=== PATIENT | male | born 1955 | race Caucasian/White ===

== ENCOUNTER 2017-05-15 15:38 | Emergency (ER) | payer MEDICAID ==
[~2017-05-15] VITALS: Ht 167.6 cm; Wt 83.9 kg
[2017-05-15 16:12] VITALS: BP 117/64
--- NOTE | 2017-05-15 17:44 | NUR ---
Patient ambulated to bed 5. RN evaluating patient at bedside.
--- NOTE | 2017-05-15 17:55 | NUR ---
PT PRESENTS TO ER FOR EVALUATION OF FOREIGN BODY IN RIGHT EYE, SENT FROM PCP. 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 HE ALSO STATES HE F/U W/PCP TODAY, WHO THEN REFERRED HIM TO ER. PT STATES HE HAS SOME TYPE OF LIVER DISORDER AND TAKES MEDICATION, BUT UNABLE TO NAME DX OR MEDICATION HE TAKES. DENIES N/V/D; SKIN IS PINK/WARM/DRY; AAOX4 WITH EVEN AND STEADY GAIT; LUNGS CLEAR BL; HR EVEN AND REGULAR; PT DENIES ANY FEVER, CP, SOB, OR COUGH AT THIS TIME; PATIENT STATES PAIN OF 3/10 AT THIS TIME; PATIENT POSITIONED FOR COMFORT; HOB ELEVATED; BEDRAILS UP X2; BED DOWN. ER MD MADE AWARE OF PT STATUS.
[2017-05-15] MEDS ORDERED: FLUORESCEIN OPTH STRIP 1 MG OP ONE (18:15)
[2017-05-15] MEDS ORDERED: TETRACAINE 0.5% OPTH SOL 2 ML BTL OP ONE (18:15)
--- NOTE | 2017-05-15 18:36 | NUR ---
CARLOS MILLER AT BEDSIDE.
--- NOTE | 2017-05-15 19:19 | NUR ---
Patient discharged with v/s stable. Written and verbal after care instructions given and explained. Patient alert, oriented and verbalized understanding of instructions. Ambulatory with steady gait. All questions addressed prior to discharge. ID band removed. Patient advised to follow up with PMD. Rx of TYLENOL W/CODEINE,NAPROSYN AND TOBRAMYCIN given. Patient educated on indication of medication including possible reaction and side effects. Opportunity to ask questions provided and answered.
[2017-05-15 19:20] VITALS: BP 124/68
== END 2017-05-15 19:20 | disposition home or self-care (01) ==
LOC: MED 15:38
DX: T15.01XA Foreign body in cornea, right eye, initial encounter (principal); S00.251A Superficial foreign body of right eyelid and periocular area, initial encounter; Y93.89 Activity, other specified; Y92.89 Other specified places as the place of occurrence of the external cause; Y99.8 Other external cause status
CPT/HCPCS: 65222; 99284

== ENCOUNTER 2022-11-07 10:40 | Emergency (ER) | payer OTHER, MEDICAID ==
[~2022-11-07] VITALS: Ht 156.2 cm; Wt 96.6 kg
[2022-11-07 10:47] VITALS: BP 128/77
[2022-11-07] MEDS ORDERED: NACL 0.9% 1,000 ML IV ONE (11:15)
[2022-11-07] MEDS ORDERED: ONDANSETRON 4 MG/2 ML VIAL IVP ONE (11:15)
--- NOTE | 2022-11-07 11:26 | NUR ---
Patient ambulated with steady gait to bed 1.
--- NOTE | 2022-11-07 11:33 | NUR ---
ASSUMED PATIENT CARE AAOX4 AMBULATORY TO ER, C/O ABDOMINAL DISCOMFORT, NAUSEA AND VOMITING, PATIENT STATES HE ATE [employer]OD YESTERDAY AND SINCE THEN HE'S BEEN FEELING THAT WAY.
[2022-11-07 11:42] LABS: BASOPHILS % (AUTO) 0.4 % (0.0-2.0); EOSINOPHILS % (AUTO) 0.4 % (0.0-4.0); HEMATOCRIT 40.4 % (36-52); LYMPHOCYTES # (AUTO) 0.6 K/uL (2.0-11.5); LYMPHOCYTES % (AUTO) 8.1 % (20.5-51.1); MEAN CORPUSCULAR HEMOGLOBIN 28 pg (27-31); MEAN CORPUSCULAR HGB CONC 32 g/dL (33-37); MEAN CORPUSCULAR VOLUME 86.4 fL (80-94); MONOCYTES # (AUTO) 0.7 K/uL (0.8-1.0); MONOCYTES % (AUTO) 10.3 % (1.7-9.3); NEUTROPHILS # (AUTO) 5.5 K/uL (1.8-7.7); NEUTROPHILS % (AUTO) 80.8 % (42.2-75.2); PLATELET COUNT (AUTO) 86 K/uL (140-450); RED BLOOD CELL COUNT(AUTO) 4.67 MIL/uL (4.20-6.10); RED CELL DISTRIBUTION WIDTH 17.7 % (11.6-13.7); WHITE BLOOD COUNT (AUTO) 6.9 K/uL (4.8-10.8)
--- NOTE | 2022-11-07 11:50 | NUR ---
PATIENT INSTRUCTED FOR URINE COLLECTION.
[2022-11-07 12:04] LABS: ALBUMIN 3.6 g/dL (3.4-5.0); ANION GAP 12.2 (8-16); CARBON DIOXIDE 31.1 mmol/L (21-32); CREATININE 0.8 mg/dL (0.6-1.3); POTASSIUM 4.3 mmol/L (3.5-5.1); TOTAL BILIRUBIN 5.5 mg/dL (0.0-1.0)
--- NOTE | 2022-11-07 13:00 | NUR ---
ULTRASOUND AT BEDSIDE IN PROGRESS.
[2022-11-07] MEDS ORDERED: SIME125T38 PO (13:11)
[2022-11-07] MEDS ORDERED: FAMO-92 PO (13:11)
[2022-11-07] MEDS ORDERED: ONDA-188 PO (13:11)
--- NOTE | 2022-11-07 13:33 | NUR ---
ALL RESULT BACK EDP REASSESS PATIENT AND D/C HOME WITH INSTRUCTION.
[2022-11-07 13:34] VITALS: BP 136/67
--- NOTE | 2022-11-07 13:36 | NUR ---
Patient discharged with v/s stable. Written and verbal after care instructions given and explained. Patient alert, oriented and verbalized understanding of instructions. Ambulatory with steady gait. All questions addressed prior to discharge. ID band removed. Patient advised to follow up with PMD. Rx of PEPCID/ZOFRAN/SIMETHICONE given. Patient educated on indication of medication including possible reaction and side effects. Opportunity to ask questions provided and answered.
--- NOTE | 2022-11-10 10:06 | NUR ---
LATE ENTRY - CONFIRMED WITH NURSE NS INFUSION COMPLETED AT 1247 11/07/22.
== END 2022-11-07 13:36 | disposition home or self-care (01) ==
LOC: MED 10:40
DX: R10.84 Generalized abdominal pain (principal); E80.7 Disorder of bilirubin metabolism, unspecified; A05.9 Bacterial foodborne intoxication, unspecified
CPT/HCPCS: 76705; 80053; 83690; 85025; 96361; 96374; 99285; J2405; J7030; Q0092

== ENCOUNTER 2022-11-10 08:19 | Inpatient (IN) | payer OTHER, MEDICAID ==
[~2022-11-10] VITALS: Ht 167.6 cm; Wt 90.3 kg
[~2022-11-10 08:19] MED LIST: FAMO-92 PO; ONDA-188 PO; SIME125T38 PO
[2022-11-10 08:28] VITALS: BP 128/74
--- NOTE | 2022-11-10 08:33 | NUR ---
Patient ambulated with steady gait to bed 3.
[2022-11-10] MEDS ORDERED: NACL 0.9% 1,000 ML IV ONE (08:55)
[2022-11-10] MEDS ORDERED: ONDANSETRON 4 MG/2 ML VIAL IVP ONE (08:55)
[2022-11-10] MEDS ORDERED: PANTOPRAZOLE 40 MG INJ VIAL IVP ONE (08:55)
[2022-11-10 09:21] LABS: BASOPHILS % (AUTO) 0.1 % (0.0-2.0); HEMATOCRIT 42.6 % (36-52); LYMPHOCYTES # (AUTO) 0.4 K/uL (2.0-11.5); LYMPHOCYTES % (AUTO) 3.9 % (20.5-51.1); MEAN CORPUSCULAR HEMOGLOBIN 28 pg (27-31); MEAN CORPUSCULAR HGB CONC 33 g/dL (33-37); MEAN CORPUSCULAR VOLUME 85.5 fL (80-94); MONOCYTES # (AUTO) 0.9 K/uL (0.8-1.0); MONOCYTES % (AUTO) 9.4 % (1.7-9.3); NEUTROPHILS % (AUTO) 86.6 % (42.2-75.2); PLATELET COUNT (AUTO) 99 K/uL (140-450); RED BLOOD CELL COUNT(AUTO) 4.98 MIL/uL (4.20-6.10); RED CELL DISTRIBUTION WIDTH 17.3 % (11.6-13.7); WHITE BLOOD COUNT (AUTO) 9.2 K/uL (4.8-10.8)
[2022-11-10 09:40] LABS: ALBUMIN 3.7 g/dL (3.4-5.0); ANION GAP 16.3 (8-16); ASPARTATE AMINOTRANSFERASE 60 U/L (15-37); CARBON DIOXIDE 26.9 mmol/L (21-32); CHLORIDE 93 mmol/L (98-107); CREATININE 1.6 mg/dL (0.6-1.3); GFR ARICAN-AMERICAN 56 mL/min (>90); GLUCOSE 209 mg/dL (74-106); LIPASE 406 U/L (73-393); POTASSIUM 4.2 mmol/L (3.5-5.1); SODIUM SERUM 132 mmol/L (136-145); TOTAL BILIRUBIN 6.8 mg/dL (0.0-1.0); UREA NITROGEN, BLOOD 43 mg/dL (7-18)
--- NOTE | 2022-11-10 10:27 | NUR ---
SWABS COLLECTED AND BROUGHT TO LAB
--- NOTE | 2022-11-10 10:27 | NUR ---
Ultrasound at bedside.
[2022-11-10] MEDS ORDERED: NACL 0.9% 1,000 ML IV SCH ×2 (11:10→11:15)
[2022-11-10] MEDS ORDERED: MORPHINE SULFATE 2 MG/ML SYR IVP PRN (11:15)
[2022-11-10] MEDS ORDERED: ZOLPIDEM 10 MG TAB PO PRN (11:15)
[2022-11-10] MEDS ORDERED: POTASSIUM CHLORIDE 10 MEQ TABER PO PRN (11:15)
[2022-11-10] MEDS ORDERED: ACETAMINOPHEN 325 MG TAB PO PRN (11:15)
[2022-11-10] MEDS ORDERED: DOCUSATE SODIUM 100 MG GELCAP PO PRN (11:15)
[2022-11-10] MEDS ORDERED: ONDANSETRON 4 MG/2 ML VIAL IVP PRN (11:15)
[2022-11-10] MEDS ORDERED: MAG SULF 2000 MG/WATER PREMIX 50 ML IV PRN (11:15)
[2022-11-10] MEDS ORDERED: LORazepam 2 MG/ML VIAL IVP PRN (11:15)
--- NOTE | 2022-11-10 11:38 | NUR ---
Pt not able to give list of home medications. Stated he is taking an unknown medication for "my liver".
--- NOTE | 2022-11-10 12:28 | NUR ---
DR GAMINO AT BEDSIDE FOR EVAL
--- NOTE | 2022-11-10 12:41 | NUR ---
16G NG inserted in L nare. Xray ordered to verify placement.
[2022-11-10 13:06] LABS: APPEARANCE,URINE CLEAR (CLEAR); BILIRUBIN,URINE 2+ (NEGATIVE); BLOOD, URINE NEGATIVE (NEGATIVE); COLOR,URINE ORANGE (YELLOW); LEUKOCYTE ESTERASE ,URINE NEGATIVE (NEGATIVE); NITRITE, URINE NEGATIVE (NEGATIVE); UGLUCOSE NEGATIVE (NEGATIVE)
[2022-11-10] MEDS ORDERED: PIPERACILLIN/TAZOBACTAM 3.375 GM in DEXTROSE 5% 50 ML IV ONE (13:40)
--- NOTE | 2022-11-10 13:45 | NUR ---
PT ARRIVED IN THE UNIT WITH NG TUBE, NG TO TO INTERMITTED SUCTION CONNECTED. IV STARTED ORDERED AND ASSESSMENT DONE.[id number]
--- NOTE | 2022-11-10 14:01 | NUR ---
Bedside report given to receiving RN. UNA. Pt has all belongings.
[2022-11-10 16:00] VITALS: BP 135/74
--- NOTE | 2022-11-10 16:32 | NUR ---
PATIENT HAS BEEN SCREENED AND CATEGORIZED MODERATE NUTRITION RISK. PATIENT WILL BE SEEN WITHIN 3-5 DAYS OF ADMISSION. REVIEWED BY NAI ARTEAGA RD
--- NOTE | 2022-11-10 17:42 | NUR ---
CO VOMITING MED GIVEN ORDERED , PT HAVING X-RAY WITH CONTRAST EVERY 30 MINUTES CONTINUED.[id number]
--- NOTE | 2022-11-10 19:00 | NUR ---
PT PULLED OUT IV AND STARTED A NEW IV ON RIGHT HAND WITH 20G. THE X-RAY CONTINUED WITH CONTRAST.[id number]
[2022-11-10] MEDS ORDERED: NACL 0.9% 500 ML IV SCH (19:50)
[2022-11-10 20:00] VITALS: BP 132/72
[2022-11-10] MEDS: POTASSIUM CHL 20MEQ/D5-NS 1,000 ML IV SCH (20:09)
[2022-11-11 01:00] VITALS: BP 126/73
--- NOTE | 2022-11-11 02:15 | NUR ---
PATIENT STABLE VITALS SIGNS IN NORMAL LIMITS NOT COMPLAINING OF PAIN VITALS SIGNS IN NORMAL LIMITS STILL IN INTERMITTENS SUCTION
[2022-11-11] MEDS: POTASSIUM CHL 20MEQ/D5-NS 1,000 ML IV SCH ×3 (03:21→19:25)
[2022-11-11 04:02] VITALS: BP 129/64
[2022-11-11 06:03] LABS: BASOPHILS # (AUTO) 0.1 K/uL (0.00-0.22); BASOPHILS % (AUTO) 0.7 % (0.0-2.0); EOSINOPHILS # (AUTO) 0.1 K/uL (0-0.4); EOSINOPHILS % (AUTO) 1.3 % (0.0-4.0); HEMATOCRIT 39.2 % (36-52); HEMOGLOBIN 12.8 g/dL (12.0-18.0); LYMPHOCYTES # (AUTO) 0.6 K/uL (2.0-11.5); LYMPHOCYTES % (AUTO) 8.2 % (20.5-51.1); MEAN CORPUSCULAR HEMOGLOBIN 29 pg (27-31); MEAN CORPUSCULAR HGB CONC 33 g/dL (33-37); MEAN CORPUSCULAR VOLUME 87.2 fL (80-94); MONOCYTES # (AUTO) 1.1 K/uL (0.8-1.0); MONOCYTES % (AUTO) 15.5 % (1.7-9.3); NEUTROPHILS # (AUTO) 5.3 K/uL (1.8-7.7); NEUTROPHILS % (AUTO) 74.3 % (42.2-75.2); PLATELET COUNT (AUTO) 109 K/uL (140-450); RED CELL DISTRIBUTION WIDTH 17.5 % (11.6-13.7); WHITE BLOOD COUNT (AUTO) 7.1 K/uL (4.8-10.8)
[2022-11-11 06:14] LABS: CARBON DIOXIDE 27.4 mmol/L (21-32); CREATININE 1.2 mg/dL (0.6-1.3); POTASSIUM 4.4 mmol/L (3.5-5.1)
--- NOTE | 2022-11-11 06:48 | NUR ---
PATIENT STABLE NOT COMPLAINING OF PAIN VITALS SIGNS IN NORMAL LIMITS
[2022-11-11 08:00] VITALS: BP 137/56
--- NOTE | 2022-11-11 08:30 | NUR ---
PATIENT RESTING COMFORTABLY, BED LOCKED AT LOWEST POSITION, CALL LIGHT WITHIN REACH. PATIENT BACK FROM SURGERY. NO SURGERY PERFORMED PER FAMILY REQUEST. NO SIGNS OF PAIN, SOB, OR DISCOMFORT AT THIS TIME.
[2022-11-11 12:00] VITALS: BP 138/61
[2022-11-11 16:00] VITALS: BP 126/59
[2022-11-11 23:58] VITALS: BP 128/72
--- NOTE | 2022-11-12 01:09 | NUR ---
PATIENT STABLE SLEEPING AT THIS TIME NOT COMPLAINING OF PAIN VITALS SIGNS IN NORMAL LIMITS
[2022-11-12] MEDS: POTASSIUM CHL 20MEQ/D5-NS 1,000 ML IV SCH ×4 (02:57→23:39)
[2022-11-12 04:29] VITALS: BP 129/72
[2022-11-12 05:31] LABS: BASOPHILS % (AUTO) 0.6 % (0.0-2.0); EOSINOPHILS # (AUTO) 0.1 K/uL (0-0.4); EOSINOPHILS % (AUTO) 1.7 % (0.0-4.0); HEMATOCRIT 36.1 % (36-52); HEMOGLOBIN 11.6 g/dL (12.0-18.0); LYMPHOCYTES # (AUTO) 0.6 K/uL (2.0-11.5); LYMPHOCYTES % (AUTO) 16.1 % (20.5-51.1); MEAN CORPUSCULAR HEMOGLOBIN 28 pg (27-31); MEAN CORPUSCULAR HGB CONC 32 g/dL (33-37); MEAN CORPUSCULAR VOLUME 87.6 fL (80-94); MONOCYTES # (AUTO) 0.6 K/uL (0.8-1.0); MONOCYTES % (AUTO) 15.7 % (1.7-9.3); NEUTROPHILS # (AUTO) 2.4 K/uL (1.8-7.7); NEUTROPHILS % (AUTO) 65.9 % (42.2-75.2); PLATELET COUNT (AUTO) 49 K/uL (140-450); RED BLOOD CELL COUNT(AUTO) 4.12 MIL/uL (4.20-6.10); RED CELL DISTRIBUTION WIDTH 17.8 % (11.6-13.7); WHITE BLOOD COUNT (AUTO) 3.6 K/uL (4.8-10.8)
[2022-11-12 06:09] LABS: ALBUMIN 2.9 g/dL (3.4-5.0); ANION GAP 10.2 (8-16); CARBON DIOXIDE 29.5 mmol/L (21-32); CREATININE 0.9 mg/dL (0.6-1.3); POTASSIUM 3.7 mmol/L (3.5-5.1); TOTAL BILIRUBIN 4.2 mg/dL (0.0-1.0)
--- NOTE | 2022-11-12 06:28 | NUR ---
PATIENT STABLE VITALS SIGNS IN NORMAL LIMITS NOT COMPLAINING OF PAIN AT THIS TIME
--- NOTE | 2022-11-12 07:25 | NUR ---
RECEIVED REPORT FROM PSYCHOLOGIST MILITARY PERSONNEL NURSE, MALU. PT IS IN BED SLEEPING AT THIS TIME. RESPIRATIONS ARE EVEN AND UNLABORED ON ROOM AIR. NO SIGNS OF DISTRESS NOTED. PT IS ALERT AND ORIENTED X4, ABLE TO VERBALIZE NEEDS. PT IS ON CLEAR LIQUID DIET, TOLERATING WELL. CALL LIGHT WITHIN REACH. ALL SAFETY MEASURES IN PLACE.
--- NOTE | 2022-11-12 07:54 | NUR ---
Patient's Plan of Care was discussed and reviewed with MANAGEMENT NURSE RN:
[2022-11-12 08:00] VITALS: BP 117/62
--- NOTE | 2022-11-12 10:12 | NUR ---
PT BROTHER AT BEDSIDE. ASKING WHY PT IS ON CLEAR LIQUID DIET. UPDATED PT AND BROTHER. ANSWERED ALL QUESTIONS. PT AND BROTHER IN AGREEMENT WITH POC.
--- NOTE | 2022-11-12 13:45 | NUR ---
PT AMBULATED TO RESTROOM. PT STATES HE HAD A BOWEL MOVEMENT. STATES HE FLUSHED IT. LISTENED TO BOWEL SOUNDS, BOWEL SOUNDS ACTIVE IN ALL QUADRANTS.
--- NOTE | 2022-11-12 14:36 | NUR ---
DC PLANNING SW MET WITH PT AT BEDSIDE TO COMPLETE ASSESSMENT. PT ALERT AND ORIENTED AND ABLE TO PROVIDE ALL OF HIS OWN INFORMATION. PT REPORTS RESIDING IN A SINGLE STORY HOME WITH HIS AND DAUGHTER, AT THE ADDRESS LISTED ON FILE. PT IDENTIFIED [employer], , AND [employer], BROTHER, EMERGENCY CONTACTS. PT STRUGGLED TO RECALL LAST APPT W/ PCP. PT REPORTS AN UPCOMING APPT ON Oct WITH [facility] FOR A FOLLOW UP APPT FOR COLON. PT IS REPORTED TO BE MEDICATION COMPLIANT AND REPORTS RECEIVING MEDICATION FROM [facility] ON IN [place], WHEN NEEDED. PT REPORTS BEING INDEPENDENT IN ALL ACTIVITIES AND DENIES USE OF DME. PT DENIES HX OF DIALYSIS, DIABETES, SNF PLACEMENT, AND HH SERVICES. PT REPORTS DC PLAN IS TO RETURN HOME WITH OR FRIEND PROVIDING TRANSPORTATION, WHEN MEDICALLY STABLE. SW INQUIRED ON RESOURCES NEEDED, PT DECLINED. Addendum: 11/12/22 at 1443 by Barrie ENAMORADO Amended: Links added.
[2022-11-12 16:00] VITALS: BP 118/57
--- NOTE | 2022-11-12 16:10 | NUR ---
PT COMPLAINING OF IV PLACEMENT. STATES IV TO LAC IS UNCOMFORTABLE AND THAT IV PUMP IS ALWAYS BEEPING. PT REQUESTING TO CHANGE IV SITE.
--- NOTE | 2022-11-12 16:22 | NUR ---
NEW IV SITE PLACED, IV TO L HAND, 22G. PT TOLERATED WELL.
--- NOTE | 2022-11-12 19:14 | NUR ---
ENDORSED PT TO UPHOLSTERY ESTIMATOR NURSE, ALINA, FOR CONTINUITY OF CARE. PT IS STABLE.
--- NOTE | 2022-11-12 19:30 | NUR ---
RECEIVED REPORT FROM DAY SHIFT NURSE DOLLY FOR CONTINUITY OF CARE. PATIENT IS A&O X4. PATIENT IS ON ROOM AIR, BREATHING IS NORMAL WITH SYMMETRICAL RISE AND FALL OF CHEST. IV IS A LAC 20G; AND A 22G L HAND, RUNNING D5 NS 20MEQ 125. PATIENT IS SLEEPING IN BED, LYING SUPINE POSITION. WILL CONTINUE TO OBSERVE PATIENT.
[2022-11-12 20:00] VITALS: BP 113/61
[2022-11-13 04:00] VITALS: BP 125/61
[2022-11-13 05:36] LABS: BASOPHILS % (AUTO) 0.4 % (0.0-2.0); EOSINOPHILS # (AUTO) 0.1 K/uL (0-0.4); HEMATOCRIT 33.6 % (36-52); HEMOGLOBIN 10.9 g/dL (12.0-18.0); LYMPHOCYTES # (AUTO) 0.5 K/uL (2.0-11.5); LYMPHOCYTES % (AUTO) 16.6 % (20.5-51.1); MEAN CORPUSCULAR HEMOGLOBIN 28 pg (27-31); MEAN CORPUSCULAR HGB CONC 32 g/dL (33-37); MEAN CORPUSCULAR VOLUME 87.6 fL (80-94); MONOCYTES # (AUTO) 0.4 K/uL (0.8-1.0); MONOCYTES % (AUTO) 14.2 % (1.7-9.3); NEUTROPHILS # (AUTO) 1.9 K/uL (1.8-7.7); NEUTROPHILS % (AUTO) 66.8 % (42.2-75.2); PLATELET COUNT (AUTO) 43 K/uL (140-450); RED BLOOD CELL COUNT(AUTO) 3.84 MIL/uL (4.20-6.10); RED CELL DISTRIBUTION WIDTH 18.1 % (11.6-13.7); WHITE BLOOD COUNT (AUTO) 2.8 K/uL (4.8-10.8)
--- NOTE | 2022-11-13 07:30 | NUR ---
RECEIVED REPORT FROM NIGHT NURSE ALINA FOR CONTINUITY OF CARE. INITIAL ASSESSMENT DONE. CALL LIGHT KEPT WITHIN REACH.
--- NOTE | 2022-11-13 07:42 | NUR ---
ENDORSED TO DAY SHIFT NURSE ANTONELLA FOR CONTINUITY OF CARE. PATIENT IS STABLE.
--- NOTE | 2022-11-13 08:26 | NUR ---
Patient's Plan of Care was discussed and reviewed with PLATE GLASS INSTALLER HELPER:
[2022-11-13] MEDS: POTASSIUM CHL 20MEQ/D5-NS 1,000 ML IV SCH (11:14)
[2022-11-13 12:46] VITALS: BP 144/62
--- NOTE | 2022-11-13 14:31 | NUR ---
PT D/C TO HOME. TRANSPORTEDY PRIVATE VEHICLE, ACCOMPANY BY FAMILY MEMBER. ALERT AND VERBALLY RESPONSIVE. ID AND IV REMOVED. DISCHARGE PAPER WORKS GIVEN AND SIGN BY PATIENT. PERSONAL BELONGINGS WAS TAKEN BY PATIENT. STABLE AT THIS TIME.
== END 2022-11-13 14:32 | disposition home or self-care (01) | DRG 388 ==
LOC: MED 08:19 → MTU 11:09
PROVIDERS: ADMIT Family Medicine; ATTEND Family Medicine
PROC: 0D9670Z Drainage of Stomach with Drainage Device, Via Natural or Artificial Opening (ICD-10-PCS; principal; 2022-11-10)
DX: K56.600 Partial intestinal obstruction, unspecified as to cause (principal); N17.0 Acute kidney failure with tubular necrosis; R65.11 Systemic inflammatory response syndrome (SIRS) of non-infectious origin with acute organ dysfunction; E87.1 Hypo-osmolality and hyponatremia; K76.82 Hepatic encephalopathy; K74.60 Unspecified cirrhosis of liver; N62 Hypertrophy of breast; Z20.822 Contact with and (suspected) exposure to COVID-19; K80.20 Calculus of gallbladder without cholecystitis without obstruction; Z90.49 Acquired absence of other specified parts of digestive tract; Z85.038 Personal history of other malignant neoplasm of large intestine
CPT/HCPCS: 36415; 71045; 74018; 74250; 76705; 80048; 80053; 81003; 82140; 83690; 83735; 84484; 85025; 86886; 86900; 86901; 87081; 93005; 96374; 96375; 99285; C9113; J2405; J2543; J3475; J7060; Q0092; Q9967

== ENCOUNTER 2023-04-27 18:39 | Inpatient (IN) | payer OTHER ==
[~2023-04-27] VITALS: Ht 167.6 cm; Wt 98.9 kg
[2023-04-27 19:06] VITALS: BP 126/70; PULSE 81; RESP 18; TEMP 98.3; O2SAT 98
[2023-04-27 19:57] LABS: BASOPHILS % (AUTO) 0.6 % (0.0-2.0); EOSINOPHILS % (AUTO) 0.2 % (0.0-4.0); HEMATOCRIT 32.7 % (36-52); HEMOGLOBIN 10.4 g/dL (12.0-18.0); LYMPHOCYTES # (AUTO) 0.3 K/uL (2.0-11.5); MEAN CORPUSCULAR HEMOGLOBIN 27 pg (27-31); MEAN CORPUSCULAR HGB CONC 32 g/dL (33-37); MONOCYTES # (AUTO) 0.2 K/uL (0.8-1.0); MONOCYTES % (AUTO) 7.8 % (1.7-9.3); NEUTROPHILS # (AUTO) 2.6 K/uL (1.8-7.7); NEUTROPHILS % (AUTO) 81.4 % (42.2-75.2); PLATELET COUNT (AUTO) 41 K/uL (140-450); RED BLOOD CELL COUNT(AUTO) 3.81 MIL/uL (4.20-6.10); RED CELL DISTRIBUTION WIDTH 19.3 % (11.6-13.7); WHITE BLOOD COUNT (AUTO) 3.1 K/uL (4.8-10.8)
[2023-04-27 20:39] LABS: ALBUMIN 2.5 g/dL (3.4-5.0); ANION GAP 10.6 (8-16); CARBON DIOXIDE 32.5 mmol/L (21-32); CREATININE 0.8 mg/dL (0.6-1.3); POTASSIUM 4.1 mmol/L (3.5-5.1); TOTAL BILIRUBIN 6.2 mg/dL (0.0-1.0)
--- NOTE | 2023-04-27 20:40 | NUR ---
67yo m with cc of generalized weakness. pt report of nausea, vomiting and black stool for 2 days. reports of 5/10 headache. report of loss apetite. denies trauma. denies allergy. pmhx: colon cancer A/ox4, not in distress. on monitor. call light within reach, pt instructed on how to use call light. pt returned demonstration. all needs met at this time. bed locked in lowest position. side rails x2 for safety
[2023-04-27] MEDS ORDERED: NACL 0.9% 1,000 ML IV ONE (20:55)
[2023-04-27] MEDS ORDERED: KETOROLAC 15 MG/ML VIAL IVP ONE (21:05)
--- NOTE | 2023-04-27 21:05 | NUR ---
pt complained of 5/10 headache. ermd made aware.
--- NOTE | 2023-04-27 21:32 | NUR ---
pt wheeled to ct
--- NOTE | 2023-04-27 22:55 | NUR ---
pt reports of nausea and vomiting. Dr. Ernst made aware. new Verbal order received. noted and carried out
[2023-04-27] MEDS ORDERED: ONDANSETRON 4 MG/2 ML VIAL ONE (23:12)
[2023-04-27] MEDS ORDERED: ONDANSETRON 4 MG/2 ML VIAL IVP ONE (23:20)
--- NOTE | 2023-04-27 23:29 | NUR ---
daughter's mobile number: [phone] -
--- NOTE | 2023-04-28 00:24 | NUR ---
informed Dr. Ernst that the daughter wants an update of CT scan result. Dr. Ernst verbally acknowledged the report
--- NOTE | 2023-04-28 00:35 | NUR ---
ERMD at bedside
--- NOTE | 2023-04-28 00:40 | NUR ---
PO challenged done per ermd order. pt tolerated well.
--- NOTE | 2023-04-28 00:42 | NUR ---
pt and daughter unable to know the home meds. daughter said she will give look for it and report it to nurse.
[2023-04-28] MEDS ORDERED: OCTREOTIDE ACETATE 1.25 MG in NACL 0.9% 250 ML IV STA (00:51)
[2023-04-28] MEDS ORDERED: PANTOPRAZOLE 40 MG INJ VIAL IVP ONE (00:55)
[2023-04-28] MEDS ORDERED: PANTOPRAZOLE 80 MG in NACL 0.9% 100 ML IVP SCH (00:55)
[2023-04-28] MEDS ORDERED: OCTREOTIDE ACETATE 1000 MCG/5 ML VIAL ONE (01:12)
--- NOTE | 2023-04-28 01:52 | NUR ---
informed Dr. Ernst pt vommited coffee ground emesis. Dr. Ernst verbalized to put pt on NPO.
--- NOTE | 2023-04-28 02:56 | NUR ---
pt. resting on bed. A/Ox4. not in distress. chest rise and fall symmetrical. call light within reach, pt instructed on how to use call light. pt returned demonstration. all needs met at this time. bed locked in lowest position. side rails x2 for safety
[2023-04-28] MEDS ORDERED: NACL 0.9% 1,000 ML IV SCH (05:25)
[2023-04-28] MEDS ORDERED: ONDANSETRON 4 MG/2 ML VIAL IVP PRN ×2 (05:25→11:25)
[2023-04-28] MEDS ORDERED: LORazepam 2 MG/ML VIAL IVP PRN (05:25)
[2023-04-28] MEDS ORDERED: MORPHINE SULFATE 2 MG/ML SYR IVP PRN (05:25)
--- NOTE | 2023-04-28 06:15 | NUR ---
Patient will be admitted to care of DR. PITTMAN. Admited to TELEMETRY. Will go to room 123A. Belongings list completed. Report to AIDE. Addendum: 04/28/23 at 0631 by [email or web address] Patient will be admitted to care of DR. PITTMAN. Admited to TELEMETRY. Will go to room 123A. Belongings list completed. Report to AIDE KRISHNAN. AIDE KRISHNAN VERBALIZED UNDERSTANDING AND NO FURTHER QUESTION
--- NOTE | 2023-04-28 06:33 | NUR ---
Patient will be admitted to care of Onesimo Red. Admited to Telemetry. Will go to room 123A. Belongings list completed. Report to ARIELLA Marrufo.
[2023-04-28] MEDS ORDERED: PANTOPRAZOLE 40 MG INJ VIAL ONE (06:35)
[2023-04-28 06:40] VITALS: BP 101/62; PULSE 71; RESP 18; TEMP 98.3; O2SAT 98
--- NOTE | 2023-04-28 06:40 | NUR ---
received pt from er aaox4 , iv not in distress , denies pain , walks to bed , ensure safety , call light within reach , will cont. to monitor . sandostatin regulated as ordered , protonix regulated as ordered , will cont. to monitor
--- NOTE | 2023-04-28 07:30 | NUR ---
RECEIVED REPORT FROM QUALITY CONTROL TECHNICIAN NURSE FOR CONTINUITY OF CARE. PATIENT IS AWAKE, ALERT AND ORIENTED X4. CURRENTLY ON ROOM AIR WITH NO APPARENT SIGNS OF ACUTE DISTRESS NOTED. PATIENT STATES NO PAIN AT THIS TIME. IV SITE LOCATED TO LEFT AND RIGHT AC, 20 GAUGE, BOTH INTACT AND PATENT. POC DISCUSSED, WHITEBOARD UPDATED, CALL LIGHT WITHIN REACH. WILL MAKE FREQUENT ROUNDS THROUGHOUT SHIFT.
--- NOTE | 2023-04-28 07:39 | NUR ---
NO COMPLAIN MADE , ENDORSED .
[2023-04-28 08:00] VITALS: BP 117/56; PULSE 85; PULSE 89; RESP 18; TEMP 98.5; O2SAT 97
--- NOTE | 2023-04-28 08:53 | NUR ---
PATIENT HAS BEEN SCREENED AND CATEGORIZED MODERATE NUTRITION RISK. PATIENT WILL BE SEEN WITHIN 3-5 DAYS OF ADMISSION. 05/01/23-05/03/[address]
--- NOTE | 2023-04-28 10:40 | NUR ---
PT IV AT LEFT AC LEAKING. IV WAS REMOVED AND A NEW IV STARTED AT LEFT AC 22 GAUGE.
[2023-04-28] MEDS ORDERED: POTASSIUM CHLORIDE 10 MEQ TABER PO PRN (11:25)
[2023-04-28] MEDS ORDERED: ACETAMINOPHEN 325 MG TAB PO PRN (11:25)
[2023-04-28] MEDS ORDERED: HYDROcodone/APAP 7.5/325 MG 1 TAB PO PRN (11:25)
[2023-04-28] MEDS ORDERED: MAG SULF 2000 MG/WATER PREMIX 50 ML IV PRN (11:25)
[2023-04-28] MEDS: NACL 0.9% 1,000 ML IV SCH (11:49)
[2023-04-28 12:00] VITALS: BP 104/61; PULSE 67; PULSE 89; RESP 18; TEMP 98.1; O2SAT 98
[2023-04-28 12:35] LABS: HEMOGLOBIN 8.4 g/dL (12.0-18.0); MEAN CORPUSCULAR HEMOGLOBIN 28 pg (27-31); MONOCYTES # (AUTO) 0.4 K/uL (0.8-1.0); NEUTROPHILS # (AUTO) 2.6 K/uL (1.8-7.7)
[2023-04-28 12:41] LABS: BASOPHILS % (AUTO) 0.3 % (0.0-2.0); EOSINOPHILS % (AUTO) 0.2 % (0.0-4.0); HEMATOCRIT 26.1 % (36-52); LYMPHOCYTES # (AUTO) 0.5 K/uL (2.0-11.5); LYMPHOCYTES % (AUTO) 13.4 % (20.5-51.1); MEAN CORPUSCULAR HGB CONC 32 g/dL (33-37); MEAN CORPUSCULAR VOLUME 86.4 fL (80-94); MONOCYTES % (AUTO) 10.7 % (1.7-9.3); NEUTROPHILS % (AUTO) 75.4 % (42.2-75.2); PLATELET COUNT (AUTO) 38 K/uL (140-450); RED BLOOD CELL COUNT(AUTO) 3.02 MIL/uL (4.20-6.10); RED CELL DISTRIBUTION WIDTH 19.2 % (11.6-13.7); WHITE BLOOD COUNT (AUTO) 3.5 K/uL (4.8-10.8)
[2023-04-28 12:56] LABS: PROTHROMBIN TIME 23.1 secs (10.8-13.4)
[2023-04-28] MEDS ORDERED: SIMETHICONE 125 MG PO SCH (13:00)
[2023-04-28] MEDS ORDERED: SIMETHICONE 80 MG TAB.CHEW PO SCH (13:00)
[2023-04-28 13:04] LABS: CREATININE 0.8 mg/dL (0.6-1.3)
--- NOTE | 2023-04-28 13:50 | NUR ---
PATIENT MOST RECENT BOWEL MOVEMENT BLACK IN CONSISTENCY. INFORMED DR RODRIGUES AND AN ORDER FOR COLONOSCOPY AND EDG WAS PLACED. CONSENT FORMS PRINTED AND SIGNED BY PATIENT.
[2023-04-28 13:56] LABS: AMYLASE 22 U/L (25-115); CHOL/HDL RATIO 2.2 (1-4.5); FREE T4 (FREE THYROXINE) 1.63 ng/dL (0.76-1.46); HDL CHOLESTEROL 54 mg/dL (40-60); LDL (CALC) 48 mg/dL (60-100); LIPASE 99 U/L (73-393); MAGNESIUM 1.3 mg/dL (1.8-2.4); PHOSPHORUS 2.7 mg/dL (2.5-4.9); THYROID STIMULATING HORMONE 0.36 uIU/mL (0.34-3.74); TRIGLYCERIDES 97 mg/dL (30-150)
[2023-04-28] MEDS ORDERED: LACTULOSE 20 GM/30 ML UDC PO SCH (13:56)
[2023-04-28] MEDS ORDERED: fentaNYL citrate 0.05 MG/ML VIAL ONE (14:34)
[2023-04-28] MEDS ORDERED: MIDAZOLAM 5 MG/5 ML VIAL ONE (14:35)
--- NOTE | 2023-04-28 15:29 | NUR ---
PATIENT TAKEN TO UNDERGO EDG @ 1530.
[2023-04-28 16:00] VITALS: PULSE 89
--- NOTE | 2023-04-28 16:02 | NUR ---
DC PLANN[age] YRS OLD MALE PATIENT WAS ADMITTED FROM HOME [facility] A DX OF GI BLEED . PATIENT HAS A HX OF LIVER CIRRHOSIS SPLENOMEGALY AND ANEMIA. CT ABD/PELVIS SHOWED CIRRHOTIC LIVER WITH INNUMERABLE REGENERATIVE NODULES. ADMINISTERED IVF. SANDOSTATIN DRIP AND CONTINUED HOME MEDS. CONSULTED WITH GI DR RODRIGUES. DC PLAN TO GO HOME WHEN STABLE. CM TO FOLLOW
[2023-04-28] MEDS ORDERED: fentaNYL citrate 0.05 MG/ML VIAL IVP ONE (16:10)
[2023-04-28] MEDS ORDERED: diphenhydrAMINE 50 MG/ML VIAL IVP ONE (16:10)
[2023-04-28] MEDS ORDERED: MIDAZOLAM 5 MG/5 ML VIAL IV ONE (16:10)
[2023-04-28] MEDS ORDERED: diphenhydrAMINE 50 MG/ML VIAL ONE (16:17)
[2023-04-28] MEDS: LACTULOSE 20 GM/30 ML UDC PO SCH ×2 (16:30→17:00)
[2023-04-28 18:36] LABS: APPEARANCE,URINE CLEAR (CLEAR); BILIRUBIN,URINE 2+ (NEGATIVE); BLOOD, URINE NEGATIVE (NEGATIVE); COLOR,URINE ORANGE (YELLOW); LEUKOCYTE ESTERASE ,URINE NEGATIVE (NEGATIVE); NITRITE, URINE NEGATIVE (NEGATIVE); UGLUCOSE NEGATIVE (NEGATIVE)
[2023-04-28 18:49] LABS: BARBITURATE, URINE NEGATIVE ng/ml (NEG <=200); BENZODIAZEPINE, URINE NEGATIVE ng/mL (NEG <=200); CANNABINOID, URINE NEGATIVE ng/mL (NEG <=50); COCAINE, URINE NEGATIVE ng/mL (NEG <=300); OPIATE, URINE NEGATIVE ng/mL (NEG <=2000); PHENCYCLIDINE SCREEN,URINE NEGATIVE ng/mL (NEG <=25)
--- NOTE | 2023-04-28 19:30 | NUR ---
RECEIVED REPORT FROM DAY SHIFT NURSE ALINA FOR CONTINUITY OF CARE. PATIENT IS A&O X4. PATIENT IS ON ROOM AIR; BREATHING IS NORMAL WITH SYMMETRICAL RISE AND FALL OF CHEST. PATIENT'S IV IS A 20G RAC, AND A 20G LAC; RUNNING NS AT 50 AND OCTREOTIDE AT 10.25. PATIENT IS SLEEPING, LYING SUPINE IN BED. BED IS IN LOWEST POSITION, WHEELS LOCKED, CALL LIGHT IN PLACE. WILL CONTINUE TO OBSERVE PATIENT.
--- NOTE | 2023-04-28 19:56 | NUR ---
ENDORSED TO BATT MACHINE OPERATOR NURSE FOR CONTINUITY OF CARE, PT RESTING AND STABLE AT THIS TIME.
[2023-04-28 20:00] VITALS: BP 128/74; PULSE 92; PULSE 94; RESP 18; TEMP 98.4; O2SAT 100
[2023-04-28] MEDS ORDERED: FAMOTIDINE 20 MG TAB PO SCH (21:00)
[2023-04-28] MEDS ORDERED: NON-FORMULARY ITEM (Famotidine* (Pepcid*) 40 MG) PO SCH (21:00)
[2023-04-28] MEDS: DOCUSATE SODIUM 100 MG GELCAP PO SCH (21:52)
[2023-04-28] MEDS: PROPRANOLOL 20 MG TAB PO SCH (21:53)
--- NOTE | 2023-04-28 22:15 | NUR ---
ADMINISTERED 2100 MEDICATIONS TO PATIENT WITHOUT ANY ISSUES WITH SWALLOWING. PATIENT IS VERY LETHARGIC, AND WANTING TO GO BACK TO SLEEP. BREATHING IS NORMAL WITH SYMMETRICAL RISE AND FALL OF CHEST. WILL CONTINUE TO OBSERVE PATIENT.
[2023-04-29] VITALS: BP 121/52; PULSE 72; PULSE 75; RESP 18; TEMP 98.6; O2SAT 94
--- NOTE | 2023-04-29 01:30 | NUR ---
LOOKED IN ON PATIENT. PATIENT HAS BEEN SLEEPING, LYING SUPINE. BREATHING IS NORMAL WITH SYMMETRICAL RISE AND FALL OF CHEST. WILL CONTINUE TO OBSERVE PATIENT.
[2023-04-29 04:00] VITALS: BP 127/49; PULSE 72; PULSE 73; RESP 18; TEMP 98.4; O2SAT 95
--- NOTE | 2023-04-29 05:00 | NUR ---
PATIENT SLEPT THROUGHOUT THE NIGHT. BREATHING IS NORMAL WITH SYMMETRICAL RISE AND FALL OF CHEST. WILL CONTINUE TO OBSERVE PATIENT.
[2023-04-29 05:21] LABS: BASOPHILS % (AUTO) 0.8 % (0.0-2.0); HEMATOCRIT 23.7 % (36-52); HEMOGLOBIN 7.5 g/dL (12.0-18.0); LYMPHOCYTES # (AUTO) 0.4 K/uL (2.0-11.5); MEAN CORPUSCULAR HEMOGLOBIN 28 pg (27-31); MEAN CORPUSCULAR HGB CONC 32 g/dL (33-37); MEAN CORPUSCULAR VOLUME 87.4 fL (80-94); MONOCYTES # (AUTO) 0.3 K/uL (0.8-1.0); MONOCYTES % (AUTO) 12.9 % (1.7-9.3); NEUTROPHILS # (AUTO) 1.7 K/uL (1.8-7.7); NEUTROPHILS % (AUTO) 70.3 % (42.2-75.2); PLATELET COUNT (AUTO) 33 K/uL (140-450); RED BLOOD CELL COUNT(AUTO) 2.71 MIL/uL (4.20-6.10); RED CELL DISTRIBUTION WIDTH 19.7 % (11.6-13.7); WHITE BLOOD COUNT (AUTO) 2.4 K/uL (4.8-10.8)
[2023-04-29 06:09] LABS: ALBUMIN 2.2 g/dL (3.4-5.0); ANION GAP 8.7 (8-16); CARBON DIOXIDE 31.9 mmol/L (21-32); CREATININE 0.8 mg/dL (0.6-1.3); MAGNESIUM 1.4 mg/dL (1.8-2.4); PHOSPHORUS 3.6 mg/dL (2.5-4.9); POTASSIUM 3.6 mmol/L (3.5-5.1); TOTAL BILIRUBIN 6.6 mg/dL (0.0-1.0)
--- NOTE | 2023-04-29 07:30 | NUR ---
RECEIVED REPORT FROM HOME BASED ASSISTANT NURSE FOR CONTINUITY OF CARE. PATIENT LYING DOWN IN BED, AMBULATES TO BATHROOM. NO DISTRESS NOTED. NO VOMITING/FEVERS, CHILLS LAST NIGHT. AAOX3, SKIN INTACT. IV SITE INTACT, PATENT, AND INFUSING IVF PER MD ORDERS. REVIEWED PLAN OF CARE WITH PATIENT. VERBALIZED UNDERSTANDING. SAFETY MEASURES IN PLACE, CALL LIGHT WITHIN REACH. WILL CONTINUE TO MONITOR.
--- NOTE | 2023-04-29 07:50 | NUR ---
ENDORSED TO DAY SHIFT NURSE MERINO FOR CONTINUITY OF CARE. PATIENT IS STABLE.
[2023-04-29 08:00] VITALS: BP 123/59; PULSE 71; PULSE 78; RESP 18; TEMP 99.3; O2SAT 98
[2023-04-29] MEDS: NACL 0.9% 1,000 ML IV SCH (08:18)
[2023-04-29] MEDS ORDERED: LACTULOSE 20 GM/30 ML UDC PO SCH (09:00)
[2023-04-29] MEDS ORDERED: PANTOPRAZOLE 40 MG INJ VIAL IVP SCH (09:00)
[2023-04-29] MEDS: PROPRANOLOL 20 MG TAB PO SCH (09:06)
[2023-04-29] MEDS: DOCUSATE SODIUM 100 MG GELCAP PO SCH (09:07)
[2023-04-29] MEDS: LACTULOSE 20 GM/30 ML UDC PO SCH ×2 (09:07→13:00)
--- NOTE | 2023-04-29 09:16 | NUR ---
SCHEDULED MEDICATIONS DUE GIVEN. WILL CONTINUE TO MONITOR.
--- NOTE | 2023-04-29 11:00 | NUR ---
PATIENT LYING DOWN IN BED WATCHING TV. NO DISTRESS NOTED. WILL CONTINUE TO MONITOR.
[2023-04-29] MEDS ORDERED: LACT10SO11 PO (11:58)
[2023-04-29] MEDS ORDERED: PROP20TA29 PO (11:58)
[2023-04-29] MEDS ORDERED: PANT40EC PO (11:58)
[2023-04-29 12:00] VITALS: BP 106/49; PULSE 68; PULSE 72; RESP 18; TEMP 99.4; O2SAT 95
--- NOTE | 2023-04-29 14:56 | NUR ---
FAMILY MEMBERS AT BEDSIDE TO TAKE PATIENT HOME. DISCHARGE INSTRUCTIONS PROVIDED TO PATIENT AND FAMILY. ANSWERED ALL QUESTIONS. IV SITE REMOVED WITH MINIMAL BLOOD AND LUMEN COMPLETELY INTACT. ID BANDS REMOVED. ESCORTED PATIENT DOWN TO LOBBY VIA WHEELCHAIR. PATIENT DISCHARGED AT THIS TIME IN STABLE CONDITION IN PRIVATE VEHICLE.
--- NOTE | 2023-04-29 14:57 | NUR ---
04/29/23 RD INITIAL ASSESSMENT COMPLETED PLEASE REFER TO NUTRITION ASSESSMENT UNDER CARE ACTIVITY FOR ESTIMATED NUTRITIONAL NEEDS. 1. CONTINUE CLEAR LIQUID DIET TOLERATED AND ONCE MEDICALLY APPROPRIATE ADVANCE TO FULL LIQUID DIET. 2. RD TO FOLLOW-UP 3-5 DAYS, MODERATE RISK CARLITA HURLEY, RD
== END 2023-04-29 15:00 | disposition home or self-care (01) | DRG 432 ==
LOC: MED 18:39 → MTU 04-28 05:26
PROVIDERS: ADMIT Student in an Organized Health Care Education/Training Program; ATTEND Student in an Organized Health Care Education/Training Program
PROC: 06L38CZ Occlusion of Esophageal Vein with Extraluminal Device, Via Natural or Artificial Opening Endoscopic (ICD-10-PCS; principal; 2023-04-28 15:30)
DX: K70.30 Alcoholic cirrhosis of liver without ascites (principal); E43 Unspecified severe protein-calorie malnutrition; I85.11 Secondary esophageal varices with bleeding; K76.6 Portal hypertension; K92.2 Gastrointestinal hemorrhage, unspecified; D62 Acute posthemorrhagic anemia; K31.89 Other diseases of stomach and duodenum; K76.82 Hepatic encephalopathy; Z68.35 Body mass index [BMI] 35.0-35.9, adult; F10.10 Alcohol abuse, uncomplicated; E88.09 Other disorders of plasma-protein metabolism, not elsewhere classified; K21.9 Gastro-esophageal reflux disease without esophagitis; D72.829 Elevated white blood cell count, unspecified; D69.6 Thrombocytopenia, unspecified; E83.42 Hypomagnesemia; E86.0 Dehydration; Z91.199 Patient's noncompliance with other medical treatment and regimen due to unspecified reason; Z85.038 Personal history of other malignant neoplasm of large intestine
CPT/HCPCS: 36415; 80048; 80053; 80305; 81003; 82140; 82150; 82272; 83036; 83605; 83690; 83735; 83880; 84100; 84439; 84443; 84484; 85025; 85610; 85730; 86886; 86900; 86901; 87081; 96361; 96365; 96366; 96375; 99291; C9113; J1200; J1885; J2250; J2354; J2405; J3010; J7030; Q9967

== ENCOUNTER 2023-07-21 09:01 | Inpatient (IN) | payer OTHER ==
[~2023-07-21] VITALS: Ht 156 cm; Wt 96.8 kg
[~2023-07-21 09:01] MED LIST changes: -FAMO-92 PO; +LACT10SO11 PO; -ONDA-188 PO; +PANT40EC PO; +PROP20TA29 PO; -SIME125T38 PO
[2023-07-21 09:37] VITALS: BP 126/64; PULSE 111; RESP 17; TEMP 98.3; O2SAT 97
[2023-07-21 10:30] LABS: HEMATOCRIT 21.6 % (36-52); MEAN CORPUSCULAR HEMOGLOBIN 26 pg (27-31); MEAN CORPUSCULAR HGB CONC 31 g/dL (33-37); MEAN CORPUSCULAR VOLUME 82.6 fL (80-94); PLATELET COUNT (AUTO) 41 K/uL (140-450); RED BLOOD CELL COUNT(AUTO) 2.62 MIL/uL (4.20-6.10); RED CELL DISTRIBUTION WIDTH 22.4 % (11.6-13.7); WHITE BLOOD COUNT (AUTO) 3.3 K/uL (4.8-10.8)
[2023-07-21 10:53] LABS: HEMOGLOBIN 6.7 g/dL (12.0-18.0)
[2023-07-21 10:54] LABS: BASOPHILS % (MANUAL) 0 % (0-2); EOSINOPHILS % (MANUAL) 0 % (0-4); LYMPHOCYTES % (MANUAL) 11 % (20-46); MONOCYTES % (MANUAL) 6 % (5-12)
[2023-07-21 10:55] LABS: PLATELET ESTIMATE DECREASED
[2023-07-21 10:56] LABS: HYPOCHROMASIA 2+; POIKILOCYTOSIS 1+; STOMATOCYTES 1+
[2023-07-21 10:59] LABS: ALBUMIN 2.3 g/dL (3.4-5.0); CALCIUM 8.8 mg/dL (8.5-10.1); CARBON DIOXIDE 30.7 mmol/L (21-32); CREATININE 0.8 mg/dL (0.6-1.3); TOTAL BILIRUBIN 12.6 mg/dL (0.0-1.0); TOTAL PROTEIN, SERUM 6.1 g/dL (6.4-8.2)
[2023-07-21 11:21] LABS: POTASSIUM 2.7 mmol/L (3.5-5.1)
[2023-07-21] MEDS ORDERED: POTASSIUM CHL 40 MEQ/ D5-1/2NS 1,000 ML IV ONE (11:30)
[2023-07-21 12:35] LABS: INR 3.2 (0.8-1.2); PARTIAL THROMBOPLASTIN TIME 32.8 secs (22-35.6); PROTHROMBIN TIME 31.8 secs (10.8-13.4)
[2023-07-21] MEDS ORDERED: ZOLPIDEM 5 MG TAB PO PRN (13:30)
[2023-07-21] MEDS: DEXT 5% /NACL 0.9% 1,000 ML IV SCH (13:30)
[2023-07-21] MEDS ORDERED: DOCUSATE SODIUM 100 MG GELCAP PO PRN (13:30)
[2023-07-21] MEDS ORDERED: HYDROcodone/APAP 7.5/325 MG 1 TAB PO PRN (13:30)
[2023-07-21] MEDS ORDERED: ONDANSETRON 4 MG/2 ML VIAL IM/IVP PRN (13:30)
[2023-07-21] MEDS ORDERED: guaiFENesin DM 200/20 MG-10 ML 10 ML UDC PO PRN (13:30)
[2023-07-21] MEDS ORDERED: ACETAMINOPHEN 325 MG TAB PO PRN (13:30)
[2023-07-21 14:03] VITALS: PULSE 94; RESP 19; O2SAT 97
[2023-07-21 14:19] VITALS: PULSE 94; RESP 19; O2SAT 97
[2023-07-21 14:21] LABS: CHOL/HDL RATIO 3.1 (1-4.5); FREE T4 (FREE THYROXINE) 1.75 ng/dL (0.76-1.46); MAGNESIUM 1.4 mg/dL (1.8-2.4); PHOSPHORUS 3.9 mg/dL (2.5-4.9); THYROID STIMULATING HORMONE 0.89 uIU/mL (0.34-3.74)
[2023-07-21 16:00] VITALS: BP 113/53; PULSE 92; RESP 18; TEMP 98.1; O2SAT 96
[2023-07-21] MEDS ORDERED: MAG SULF 2000 MG/WATER PREMIX 50 ML IV SCH (16:30)
[2023-07-21 20:00] VITALS: BP 122/58; PULSE 79; RESP 18; TEMP 98.8; O2SAT 94
[2023-07-21] MEDS ORDERED: MAG SULF 2000 MG/WATER PREMIX 50 ML IV ONE (20:31)
[2023-07-21 21:17] LABS: HEMATOCRIT 20.4 % (36-52); LYMPHOCYTES # (AUTO) 0.3 K/uL (2.0-11.5); LYMPHOCYTES % (AUTO) 13.6 % (20.5-51.1); MEAN CORPUSCULAR HEMOGLOBIN 27 pg (27-31); MEAN CORPUSCULAR HGB CONC 32 g/dL (33-37); MEAN CORPUSCULAR VOLUME 83.5 fL (80-94); MONOCYTES # (AUTO) 0.2 K/uL (0.8-1.0); MONOCYTES % (AUTO) 12.5 % (1.7-9.3); NEUTROPHILS # (AUTO) 1.3 K/uL (1.8-7.7); NEUTROPHILS % (AUTO) 69.9 % (42.2-75.2); PLATELET COUNT (AUTO) 33 K/uL (140-450); RED BLOOD CELL COUNT(AUTO) 2.44 MIL/uL (4.20-6.10); RED CELL DISTRIBUTION WIDTH 21.2 % (11.6-13.7)
[2023-07-21 21:29] LABS: HEMOGLOBIN 6.5 g/dL (12.0-18.0); WHITE BLOOD COUNT (AUTO) 1.9 K/uL (4.8-10.8)
[2023-07-22 04:00] VITALS: BP 103/50; PULSE 94; RESP 18; TEMP 98.5; O2SAT 98
[2023-07-22] MEDS: DEXT 5% /NACL 0.9% 1,000 ML IV SCH ×5 (04:20→23:17)
[2023-07-22 05:39] LABS: BASOPHILS % (AUTO) 0.3 % (0.0-2.0); EOSINOPHILS % (AUTO) 1.1 % (0.0-4.0); HEMATOCRIT 22.4 % (36-52); HEMOGLOBIN 7.3 g/dL (12.0-18.0); LYMPHOCYTES # (AUTO) 0.5 K/uL (2.0-11.5); LYMPHOCYTES % (AUTO) 22.3 % (20.5-51.1); MEAN CORPUSCULAR HEMOGLOBIN 27 pg (27-31); MEAN CORPUSCULAR HGB CONC 32 g/dL (33-37); MONOCYTES # (AUTO) 0.3 K/uL (0.8-1.0); NEUTROPHILS # (AUTO) 1.3 K/uL (1.8-7.7); NEUTROPHILS % (AUTO) 63.3 % (42.2-75.2); PLATELET COUNT (AUTO) 32 K/uL (140-450); RED BLOOD CELL COUNT(AUTO) 2.67 MIL/uL (4.20-6.10); WHITE BLOOD COUNT (AUTO) 2.1 K/uL (4.8-10.8)
[2023-07-22 05:43] LABS: ANION GAP 7.2 (8-16); CALCIUM 7.9 mg/dL (8.5-10.1); CARBON DIOXIDE 32.8 mmol/L (21-32); CREATININE 0.7 mg/dL (0.6-1.3)
[2023-07-22 07:08] LABS: T4 (THYROXINE) 6.7 ug/dL (4.5-12.0)
[2023-07-22 08:00] VITALS: BP 99/60; PULSE 60; RESP 18; TEMP 98.4; O2SAT 97; O2SAT 99
[2023-07-22] MEDS ORDERED: PANTOPRAZOLE 40 MG TABEC PO SCH (09:00)
[2023-07-22 09:15] LABS: HEMOGLOBIN A1C 4.7 % (4.8-5.6)
[2023-07-22] MEDS ORDERED: POTASSIUM CHLORIDE 40 MEQ, LIDOCAINE 1% 25 MG in NACL 0.9% 250 ML IV ONE (09:30)
[2023-07-22 16:00] VITALS: BP 114/58; PULSE 87; RESP 18; TEMP 98.8; O2SAT 99
[2023-07-22 19:53] VITALS: O2SAT 98
[2023-07-22 20:00] VITALS: BP 116/58; PULSE 93; RESP 18; TEMP 99; O2SAT 97; O2SAT 99
[2023-07-22] MEDS ORDERED: PANTOPRAZOLE 80 MG in NACL 0.9% 100 ML IVP SCH (21:00)
[2023-07-22] MEDS ORDERED: OCTREOTIDE ACETATE 100 MCG/ML VIAL ONE (23:05)
[2023-07-22] MEDS ORDERED: OCTREOTIDE ACETATE 1000 MCG/5 ML VIAL ONE (23:05)
[2023-07-22] MEDS: OCTREOTIDE ACETATE 1.25 MG in NACL 0.9% 250 ML IV SCH (23:18)
[2023-07-23 01:00] LABS: APPEARANCE,URINE SL CLOUDY (CLEAR); BILIRUBIN,URINE 3+ (NEGATIVE); BLOOD, URINE NEGATIVE (NEGATIVE); COLOR,URINE BROWN (YELLOW); LEUKOCYTE ESTERASE ,URINE TRACE (NEGATIVE); NITRITE, URINE POSITIVE (NEGATIVE); PH,URINE 5.5 (5.0-9.0); PROTEIN,URINE TRACE (NEGATIVE); UGLUCOSE TRACE (NEGATIVE)
[2023-07-23 01:03] LABS: ICTOTEST POSITIVE (NEGATIVE)
[2023-07-23 01:04] LABS: BACTERIA,URINE >30 (MANY) /HPF (None Seen); MUCUS,URINE 1+ /LPF (None Seen); RBC,URINE 0-5 /HPF (0-5); SQUAMOUS EPITHELIAL CELL,UR 0-3 (FEW) /LPF (0-3 (FEW)); WBC,URINE 0-5 /HPF (0-5)
[2023-07-23 01:45] LABS: HEMATOCRIT 27.4 % (36-52); HEMOGLOBIN 8.9 g/dL (12.0-18.0)
[2023-07-23 04:00] VITALS: BP 121/86; PULSE 83; RESP 18; TEMP 98.2; O2SAT 96
[2023-07-23 08:00] VITALS: BP 111/58; PULSE 84; RESP 18; TEMP 98.5; O2SAT 96; O2SAT 97
[2023-07-23 08:02] LABS: BASOPHILS # (AUTO) 0.1 K/uL (0.00-0.22); BASOPHILS % (AUTO) 2.8 % (0.0-2.0); EOSINOPHILS % (AUTO) 1.6 % (0.0-4.0); HEMOGLOBIN 8.7 g/dL (12.0-18.0); LYMPHOCYTES # (AUTO) 0.2 K/uL (2.0-11.5); LYMPHOCYTES % (AUTO) 9.8 % (20.5-51.1); MEAN CORPUSCULAR HEMOGLOBIN 28 pg (27-31); MEAN CORPUSCULAR HGB CONC 32 g/dL (33-37); MEAN CORPUSCULAR VOLUME 85.4 fL (80-94); MONOCYTES # (AUTO) 0.3 K/uL (0.8-1.0); MONOCYTES % (AUTO) 16.5 % (1.7-9.3); NEUTROPHILS # (AUTO) 1.5 K/uL (1.8-7.7); NEUTROPHILS % (AUTO) 69.3 % (42.2-75.2); PLATELET COUNT (AUTO) 32 K/uL (140-450); RED BLOOD CELL COUNT(AUTO) 3.16 MIL/uL (4.20-6.10); RED CELL DISTRIBUTION WIDTH 21.2 % (11.6-13.7); WHITE BLOOD COUNT (AUTO) 2.1 K/uL (4.8-10.8)
[2023-07-23 08:29] LABS: CARBON DIOXIDE 31.2 mmol/L (21-32); CREATININE 0.7 mg/dL (0.6-1.3); POTASSIUM 3.2 mmol/L (3.5-5.1)
[2023-07-23] MEDS: DEXT 5% /NACL 0.9% 1,000 ML IV SCH (12:19)
[2023-07-23] MEDS: POTASSIUM CHLORIDE 10 MEQ TABER PO PRN (14:15)
[2023-07-23] MEDS ORDERED: diphenhydrAMINE 50 MG/ML VIAL ONE (14:30)
[2023-07-23] MEDS ORDERED: fentaNYL citrate 0.05 MG/ML VIAL ONE (14:30)
[2023-07-23] MEDS ORDERED: MIDAZOLAM 2 MG/2 ML VIAL ONE (14:31)
[2023-07-23] MEDS ORDERED: SENNA 8.6 MG TAB PO SCH (15:18)
[2023-07-23] MEDS ORDERED: fentaNYL citrate 0.05 MG/ML VIAL IVP ONE (15:45)
[2023-07-23] MEDS ORDERED: MIDAZOLAM 2 MG/2 ML VIAL IV ONE (15:45)
[2023-07-23 16:00] VITALS: BP 105/62; PULSE 84; RESP 18; TEMP 98; O2SAT 98
[2023-07-23] MEDS ORDERED: PHYTONADIONE 10 MG in NACL 0.9% 50 ML IV SCH (16:00)
[2023-07-23] MEDS ORDERED: FERROUS SULFATE 325 MG TABEC PO SCH (17:00)
[2023-07-23] MEDS: LACTULOSE 20 GM/30 ML UDC PO SCH ×3 (17:09→23:14)
[2023-07-23] MEDS: SENNA 8.6 MG TAB PO SCH (17:10)
[2023-07-23 20:00] VITALS: BP 112/55; PULSE 70; RESP 18; TEMP 97.8; O2SAT 94
[2023-07-23] MEDS ORDERED: LACTULOSE 20 GM/30 ML UDC PO SCH (21:00)
[2023-07-23] MEDS: OCTREOTIDE ACETATE 1.25 MG in NACL 0.9% 250 ML IV SCH (22:09)
[2023-07-24 04:00] VITALS: BP 96/56; PULSE 83; RESP 18; TEMP 98; O2SAT 98
[2023-07-24] MEDS: LACTULOSE 20 GM/30 ML UDC PO SCH ×5 (04:37→21:22)
[2023-07-24 05:04] LABS: BASOPHILS % (AUTO) 0.9 % (0.0-2.0); EOSINOPHILS % (AUTO) 1.8 % (0.0-4.0); HEMATOCRIT 26.7 % (36-52); HEMOGLOBIN 8.6 g/dL (12.0-18.0); LYMPHOCYTES % (AUTO) 40.3 % (20.5-51.1); MEAN CORPUSCULAR HEMOGLOBIN 28 pg (27-31); MEAN CORPUSCULAR HGB CONC 32 g/dL (33-37); MONOCYTES # (AUTO) 0.3 K/uL (0.8-1.0); MONOCYTES % (AUTO) 13.1 % (1.7-9.3); NEUTROPHILS # (AUTO) 1.1 K/uL (1.8-7.7); NEUTROPHILS % (AUTO) 43.9 % (42.2-75.2); PLATELET COUNT (AUTO) 43 K/uL (140-450); RED BLOOD CELL COUNT(AUTO) 3.07 MIL/uL (4.20-6.10); WHITE BLOOD COUNT (AUTO) 2.6 K/uL (4.8-10.8)
[2023-07-24 05:39] LABS: ANION GAP 5.5 (8-16); CALCIUM 8.1 mg/dL (8.5-10.1); CARBON DIOXIDE 31.9 mmol/L (21-32); CREATININE 0.8 mg/dL (0.6-1.3); POTASSIUM 3.4 mmol/L (3.5-5.1)
[2023-07-24] MEDS: PANTOPRAZOLE 40 MG TABEC PO SCH (05:41)
[2023-07-24 08:00] VITALS: PULSE 74; RESP 20; O2SAT 96
[2023-07-24] MEDS: SENNA 8.6 MG TAB PO SCH ×3 (09:33→17:13)
[2023-07-24 12:43] VITALS: BP 115/72; PULSE 74; RESP 17; TEMP 97.7; O2SAT 96
[2023-07-24 20:00] VITALS: BP 133/67; PULSE 78; RESP 19; TEMP 98.2; O2SAT 97
[2023-07-25] MEDS: LACTULOSE 20 GM/30 ML UDC PO SCH ×4 (00:02→09:05)
[2023-07-25 04:00] VITALS: BP 135/68; PULSE 76; RESP 17; TEMP 97.7; O2SAT 97
[2023-07-25] MEDS: PANTOPRAZOLE 40 MG TABEC PO SCH (06:10)
[2023-07-25 06:32] LABS: HEMATOCRIT 29.3 % (36-52); HEMOGLOBIN 9.4 g/dL (12.0-18.0); MEAN CORPUSCULAR HEMOGLOBIN 28 pg (27-31); MEAN CORPUSCULAR HGB CONC 32 g/dL (33-37); MEAN CORPUSCULAR VOLUME 86.6 fL (80-94); PLATELET COUNT (AUTO) 45 K/uL (140-450); RED BLOOD CELL COUNT(AUTO) 3.39 MIL/uL (4.20-6.10); RED CELL DISTRIBUTION WIDTH 22.9 % (11.6-13.7); WHITE BLOOD COUNT (AUTO) 2.7 K/uL (4.8-10.8)
[2023-07-25 06:50] LABS: ANION GAP 8.6 (8-16); CALCIUM 8.5 mg/dL (8.5-10.1); CARBON DIOXIDE 31.8 mmol/L (21-32); CREATININE 0.7 mg/dL (0.6-1.3); POTASSIUM 3.4 mmol/L (3.5-5.1)
[2023-07-25 07:05] LABS: BASOPHILS % (MANUAL) 0 % (0-2); EOSINOPHILS % (MANUAL) 1 % (0-4); LYMPHOCYTES % (MANUAL) 18 % (20-46); MONOCYTES % (MANUAL) 17 % (5-12); PLATELET ESTIMATE DECREASED
[2023-07-25 08:00] VITALS: BP 131/66; PULSE 80; RESP 18; TEMP 97.3; O2SAT 97
[2023-07-25] MEDS: SENNA 8.6 MG TAB PO SCH (08:22)
[2023-07-25] MEDS ORDERED: diphenhydrAMINE 50 MG/ML VIAL ONE (08:29)
[2023-07-25] MEDS ORDERED: fentaNYL citrate 0.05 MG/ML VIAL ONE (08:29)
[2023-07-25] MEDS ORDERED: MIDAZOLAM 2 MG/2 ML VIAL ONE (08:29)
[2023-07-25] MEDS ORDERED: POTASSIUM CHLORIDE 20% 40 MEQ/15 ML UDC GT SCH (09:05)
[2023-07-25] MEDS: POTASSIUM CHLORIDE 10 MEQ TABER PO PRN (09:32)
[2023-07-25] MEDS ORDERED: MIDAZOLAM 2 MG/2 ML VIAL IVP ONE (11:55)
[2023-07-25] MEDS ORDERED: fentaNYL citrate 0.05 MG/ML VIAL IVP ONE (11:55)
[2023-07-25 16:00] VITALS: BP 123/54; PULSE 89; RESP 18; TEMP 98.1; O2SAT 97
[2023-07-25 20:00] VITALS: BP 126/67; PULSE 83; RESP 18; TEMP 98.4; O2SAT 96
[2023-07-25 20:05] VITALS: BP 126/67; PULSE 83; RESP 18; TEMP 98.4; O2SAT 96
[2023-07-26 04:00] VITALS: BP 118/67; PULSE 84; RESP 16; TEMP 98.6; O2SAT 98
[2023-07-26 07:25] LABS: BASOPHILS % (AUTO) 0.7 % (0.0-2.0); EOSINOPHILS % (AUTO) 1.5 % (0.0-4.0); HEMATOCRIT 27.1 % (36-52); HEMOGLOBIN 8.8 g/dL (12.0-18.0); LYMPHOCYTES # (AUTO) 0.3 K/uL (2.0-11.5); MEAN CORPUSCULAR HEMOGLOBIN 28 pg (27-31); MEAN CORPUSCULAR HGB CONC 33 g/dL (33-37); MONOCYTES # (AUTO) 0.4 K/uL (0.8-1.0); NEUTROPHILS # (AUTO) 1.4 K/uL (1.8-7.7); PLATELET COUNT (AUTO) 44 K/uL (140-450); RED BLOOD CELL COUNT(AUTO) 3.15 MIL/uL (4.20-6.10); WHITE BLOOD COUNT (AUTO) 2.1 K/uL (4.8-10.8)
[2023-07-26 08:00] VITALS: BP 120/63; PULSE 81; RESP 20; TEMP 98.1; O2SAT 96
[2023-07-26 08:16] LABS: ANION GAP 9.6 (8-16); CALCIUM 8.1 mg/dL (8.5-10.1); CARBON DIOXIDE 29.9 mmol/L (21-32); CREATININE 0.7 mg/dL (0.6-1.3); POTASSIUM 3.5 mmol/L (3.5-5.1)
[2023-07-26 08:27] LABS: LYMPHOCYTES % (AUTO) 12.5 % (20.5-51.1); MONOCYTES % (AUTO) 20.4 % (1.7-9.3); NEUTROPHILS % (AUTO) 64.9 % (42.2-75.2)
[2023-07-26] MEDS: PANTOPRAZOLE 40 MG TABEC PO SCH (08:29)
[2023-07-26] MEDS: LACTULOSE 20 GM/30 ML UDC PO SCH (08:29)
[2023-07-26 12:56] VITALS: BP 120/63; PULSE 81; RESP 20; TEMP 98.1
== END 2023-07-26 13:45 | disposition home or self-care (01) | DRG 808 ==
LOC: MED 09:01 → MTU 11:57
PROVIDERS: ADMIT Family Medicine; ATTEND Family Medicine
PROC: 30233N1 Transfusion of Nonautologous Red Blood Cells into Peripheral Vein, Percutaneous Approach (ICD-10-PCS; 2023-07-21)
PROC: 0DJ08ZZ Inspection of Upper Intestinal Tract, Via Natural or Artificial Opening Endoscopic (ICD-10-PCS; principal; 2023-07-23 14:45)
PROC: 0DBH8ZZ Excision of Cecum, Via Natural or Artificial Opening Endoscopic (ICD-10-PCS; 2023-07-25)
PROC: 0DBG8ZZ Excision of Left Large Intestine, Via Natural or Artificial Opening Endoscopic (ICD-10-PCS; 2023-07-25)
DX: D61.818 Other pancytopenia (principal); N17.0 Acute kidney failure with tubular necrosis; K76.6 Portal hypertension; E44.0 Moderate protein-calorie malnutrition; K70.30 Alcoholic cirrhosis of liver without ascites; K63.5 Polyp of colon; E87.6 Hypokalemia; E83.42 Hypomagnesemia; E83.51 Hypocalcemia; K31.89 Other diseases of stomach and duodenum; K64.8 Other hemorrhoids; F10.10 Alcohol abuse, uncomplicated; Y90.9 Presence of alcohol in blood, level not specified; E66.9 Obesity, unspecified; Z79.899 Other long term (current) drug therapy; Z85.038 Personal history of other malignant neoplasm of large intestine; Z68.39 Body mass index [BMI] 39.0-39.9, adult; D73.1 Hypersplenism
CPT/HCPCS: 36415; 36430; 71045; 80048; 80053; 81001; 82105; 82150; 82378; 83036; 83690; 83735; 83880; 84100; 84436; 84439; 84443; 84479; 85018; 85025; 85610; 85730; 86886; 86900; 86901; 86920; 87081; 88305; 93005; 99285; C9113; J1200; J2001; J2250; J2354; J3010; J3430; J3475; J3480; J7030; P9016

== ENCOUNTER 2023-09-01 08:09 | Outpatient (CLI) | payer OTHER | END 2023-09-01 20:08 | disposition home or self-care (01) | LOC: MUS 08:09 | PROVIDERS: ATTEND Internal Medicine | DX: N45.1 Epididymitis (principal); R18.8 Other ascites; N43.3 Hydrocele, unspecified; Z85.038 Personal history of other malignant neoplasm of large intestine | CPT/HCPCS: 76856; 76870 ==

== ENCOUNTER 2023-11-05 12:20 | Inpatient (IN) | payer OTHER ==
[~2023-11-05] VITALS: Ht 175.3 cm; Wt 90.7 kg
[2023-11-05 12:40] VITALS: BP 78/49; PULSE 124; RESP 24; TEMP 98.5; O2SAT 98
[2023-11-05] MEDS ORDERED: NACL 0.9% 1,000 ML IV SCH ×2 (13:00→14:15)
[2023-11-05] MEDS ORDERED: cefTRIAXone 1,000 MG in DEXT 5% MINI-BAG PLUS 50 ML IV ONE (13:00)
[2023-11-05] MEDS ORDERED: cefTRIAXone 1,000 MG VIAL ONE (13:11)
[2023-11-05 13:17] LABS: BASOPHILS % (AUTO) 0.1 % (0.0-2.0); EOSINOPHILS % (AUTO) 0.1 % (0.0-4.0); HEMATOCRIT 31.7 % (36-52); LYMPHOCYTES # (AUTO) 0.5 K/uL (2.0-11.5); LYMPHOCYTES % (AUTO) 4.1 % (20.5-51.1); MEAN CORPUSCULAR HEMOGLOBIN 39 pg (27-31); MEAN CORPUSCULAR HGB CONC 35 g/dL (33-37); MONOCYTES # (AUTO) 1.3 K/uL (0.8-1.0); MONOCYTES % (AUTO) 11.1 % (1.7-9.3); NEUTROPHILS # (AUTO) 10.1 K/uL (1.8-7.7); NEUTROPHILS % (AUTO) 84.6 % (42.2-75.2); PLATELET COUNT (AUTO) 113 K/uL (140-450); RED BLOOD CELL COUNT(AUTO) 2.83 MIL/uL (4.20-6.10); RED CELL DISTRIBUTION WIDTH 16.4 % (11.6-13.7); WHITE BLOOD COUNT (AUTO) 11.9 K/uL (4.8-10.8)
[2023-11-05 13:27] LABS: ANION GAP 17.3 (8-16); CALCIUM 8.6 mg/dL (8.5-10.1); CARBON DIOXIDE 29.6 mmol/L (21-32); CREATININE 2.7 mg/dL (0.6-1.3); POTASSIUM 3.9 mmol/L (3.5-5.1)
[2023-11-05 13:38] LABS: ALANINE AMINOTRANSFERASE 4 U/L (12-78); ALBUMIN 2.2 g/dL (3.4-5.0); ALKALINE PHOSPHATASE 69 U/L (50-136); ASPARTATE AMINOTRANSFERASE 25 U/L (15-37); BILIRUBIN,DIRECT 13.9 mg/dL (0.0-0.3); TOTAL PROTEIN, SERUM 6.9 g/dL (6.4-8.2)
[2023-11-05 13:42] LABS: LACTIC ACID 7.1 mmol/L (0.4-2.0)
[2023-11-05] MEDS ORDERED: ALBUMIN HUMAN 25% 100 ML IV ONE ×2 (14:13→14:15)
[2023-11-05] MEDS ORDERED: ZOLPIDEM 10 MG TAB PO PRN (16:50)
[2023-11-05] MEDS ORDERED: MORPHINE SULFATE 2 MG/ML SYR IVP PRN (16:50)
[2023-11-05] MEDS ORDERED: ACETAMINOPHEN 325 MG TAB PO PRN (16:50)
[2023-11-05] MEDS ORDERED: POTASSIUM CHLORIDE 10 MEQ TABER PO PRN (16:50)
[2023-11-05] MEDS ORDERED: MAG SULF 2000 MG/WATER PREMIX 50 ML IV PRN (16:50)
[2023-11-05] MEDS ORDERED: DOCUSATE SODIUM 100 MG GELCAP PO PRN (16:50)
[2023-11-05] MEDS ORDERED: ONDANSETRON 4 MG/2 ML VIAL IVP PRN (16:50)
[2023-11-05] MEDS ORDERED: NACL 0.9% 500 ML IV ONE (20:25)
[2023-11-05 22:45] VITALS: BP 109/67; PULSE 113; PULSE 115; RESP 20; TEMP 97.8; O2SAT 98
[2023-11-05 22:48] VITALS: RESP 19; O2SAT 98
[2023-11-06] VITALS (12 sets, daily range): BP systolic 89–110; BP diastolic 50–64; PULSE 102–114; RESP 20–22; TEMP 98–98.8; O2SAT 95–100
[2023-11-06] MEDS ORDERED: cefTRIAXone 2,000 MG VIAL ONE (00:51)
[2023-11-06] MEDS: cefTRIAXone 2,000 MG in DEXTROSE 5% 100 ML IV SCH ×2 (01:03→12:33)
[2023-11-06 05:31] LABS: BASOPHILS % (AUTO) 0.1 % (0.0-2.0); EOSINOPHILS % (AUTO) 0.1 % (0.0-4.0); HEMATOCRIT 24.3 % (36-52); HEMOGLOBIN 8.7 g/dL (12.0-18.0); LYMPHOCYTES # (AUTO) 0.4 K/uL (2.0-11.5); LYMPHOCYTES % (AUTO) 6.7 % (20.5-51.1); MEAN CORPUSCULAR HEMOGLOBIN 40 pg (27-31); MEAN CORPUSCULAR HGB CONC 36 g/dL (33-37); MEAN CORPUSCULAR VOLUME 111.2 fL (80-94); MONOCYTES # (AUTO) 0.9 K/uL (0.8-1.0); MONOCYTES % (AUTO) 14.2 % (1.7-9.3); NEUTROPHILS # (AUTO) 4.9 K/uL (1.8-7.7); NEUTROPHILS % (AUTO) 78.9 % (42.2-75.2); PLATELET COUNT (AUTO) 48 K/uL (140-450); RED BLOOD CELL COUNT(AUTO) 2.18 MIL/uL (4.20-6.10); RED CELL DISTRIBUTION WIDTH 15.9 % (11.6-13.7); WHITE BLOOD COUNT (AUTO) 6.2 K/uL (4.8-10.8)
[2023-11-06 06:41] LABS: ANION GAP 12.4 (8-16); CALCIUM 8.3 mg/dL (8.5-10.1); CARBON DIOXIDE 30.8 mmol/L (21-32); CREATININE 2.5 mg/dL (0.6-1.3); POTASSIUM 4.2 mmol/L (3.5-5.1); TOTAL BILIRUBIN 22.5 mg/dL (0.0-1.0); TOTAL PROTEIN, SERUM 5.9 g/dL (6.4-8.2)
[2023-11-06] MEDS ORDERED: ALBUTEROL SULFATE/IPRATROPIU 3 ML SOL IH PRN (10:45)
[2023-11-06] MEDS: NACL 0.9% 1,000 ML IV SCH (11:37)
[2023-11-06 11:47] LABS: INR 2.68 (0.8-1.2); PROTHROMBIN TIME 26.9 secs (10.8-13.4)
[2023-11-06] MEDS: ALBUTEROL SULFATE/IPRATROPIU 3 ML SOL IH SCH ×3 (12:08→19:00)
[2023-11-06] MEDS ORDERED: PHYTONADIONE 10 MG in NACL 0.9% 50 ML IV SCH (12:30)
[2023-11-06] MEDS: ALBUMIN HUMAN 25% 100 ML IV SCH ×2 (12:32→21:56)
[2023-11-06] MEDS: MIDODRINE 5 MG TAB PO SCH ×2 (12:33→18:22)
[2023-11-06] MEDS: LACTULOSE 20 GM/30 ML UDC PO SCH ×3 (12:33→18:56)
[2023-11-06] MEDS: OCTREOTIDE ACETATE 100 MCG/ML VIAL IV SCH ×2 (12:33→18:22)
[2023-11-06] MEDS ORDERED: PROPRANOLOL 20 MG TAB PO SCH (21:00)
[2023-11-06] MEDS: PANTOPRAZOLE 40 MG INJ VIAL IVP SCH (21:56)
[2023-11-06 23:22] LABS: BASOPHILS % (AUTO) 0.2 % (0.0-2.0); EOSINOPHILS % (AUTO) 0.3 % (0.0-4.0); HEMATOCRIT 21.1 % (36-52); HEMOGLOBIN 7.3 g/dL (12.0-18.0); LYMPHOCYTES # (AUTO) 0.3 K/uL (2.0-11.5); LYMPHOCYTES % (AUTO) 6.5 % (20.5-51.1); MEAN CORPUSCULAR HEMOGLOBIN 39 pg (27-31); MEAN CORPUSCULAR HGB CONC 35 g/dL (33-37); MEAN CORPUSCULAR VOLUME 112.1 fL (80-94); MONOCYTES # (AUTO) 0.7 K/uL (0.8-1.0); MONOCYTES % (AUTO) 13.8 % (1.7-9.3); NEUTROPHILS # (AUTO) 3.8 K/uL (1.8-7.7); NEUTROPHILS % (AUTO) 79.2 % (42.2-75.2); PLATELET COUNT (AUTO) 52 K/uL (140-450); RED BLOOD CELL COUNT(AUTO) 1.88 MIL/uL (4.20-6.10); RED CELL DISTRIBUTION WIDTH 16.2 % (11.6-13.7); WHITE BLOOD COUNT (AUTO) 4.8 K/uL (4.8-10.8)
[2023-11-07] VITALS (9 sets, daily range): BP systolic 96–112; BP diastolic 44–74; PULSE 84–101; RESP 18–20; TEMP 97.2–98.8; O2SAT 96–100
[2023-11-07] MEDS: cefTRIAXone 2,000 MG in DEXTROSE 5% 100 ML IV SCH (01:27)
[2023-11-07] MEDS: NACL 0.9% 1,000 ML IV SCH (03:40)
[2023-11-07] MEDS: ALBUMIN HUMAN 25% 100 ML IV SCH ×3 (05:07→14:38)
[2023-11-07 06:19] LABS: ALBUMIN 2.3 g/dL (3.4-5.0); ANION GAP 11.2 (8-16); CALCIUM 8.3 mg/dL (8.5-10.1); CARBON DIOXIDE 30.7 mmol/L (21-32); CREATININE 2.9 mg/dL (0.6-1.3); POTASSIUM 3.9 mmol/L (3.5-5.1); TOTAL BILIRUBIN 20.8 mg/dL (0.0-1.0); TOTAL PROTEIN, SERUM 5.7 g/dL (6.4-8.2)
[2023-11-07] MEDS: MIDODRINE 5 MG TAB PO SCH ×2 (06:27→13:00)
[2023-11-07 06:39] LABS: BASOPHILS % (AUTO) 0.1 % (0.0-2.0); EOSINOPHILS % (AUTO) 0.6 % (0.0-4.0); LYMPHOCYTES # (AUTO) 0.3 K/uL (2.0-11.5); LYMPHOCYTES % (AUTO) 8.8 % (20.5-51.1); MEAN CORPUSCULAR HEMOGLOBIN 40 pg (27-31); MEAN CORPUSCULAR HGB CONC 35 g/dL (33-37); MEAN CORPUSCULAR VOLUME 112.9 fL (80-94); MONOCYTES # (AUTO) 0.5 K/uL (0.8-1.0); MONOCYTES % (AUTO) 14.1 % (1.7-9.3); NEUTROPHILS # (AUTO) 2.5 K/uL (1.8-7.7); NEUTROPHILS % (AUTO) 76.4 % (42.2-75.2); PLATELET COUNT (AUTO) 43 K/uL (140-450); RED BLOOD CELL COUNT(AUTO) 1.73 MIL/uL (4.20-6.10); RED CELL DISTRIBUTION WIDTH 16.4 % (11.6-13.7); WHITE BLOOD COUNT (AUTO) 3.2 K/uL (4.8-10.8)
[2023-11-07 06:47] LABS: HEMATOCRIT 19.5 % (36-52); HEMOGLOBIN 6.9 g/dL (12.0-18.0)
[2023-11-07 07:26] LABS: APPEARANCE,URINE CLEAR (CLEAR); BILIRUBIN,URINE 3+ (NEGATIVE); BLOOD, URINE TRACE-I (NEGATIVE); COLOR,URINE YELLOW (YELLOW); LEUKOCYTE ESTERASE ,URINE TRACE (NEGATIVE); NITRITE, URINE POSITIVE (NEGATIVE); PROTEIN,URINE 1+ (NEGATIVE); UGLUCOSE NEGATIVE (NEGATIVE)
[2023-11-07 07:46] LABS: BACTERIA,URINE >30 (MANY) /HPF (None Seen); ICTOTEST POSITIVE (NEGATIVE); MUCUS,URINE None Seen /LPF (None Seen); RBC,URINE 0-5 /HPF (0-5); SQUAMOUS EPITHELIAL CELL,UR 4-10 (MOD) /LPF (0-3 (FEW))
[2023-11-07 07:47] LABS: TRICHOMONAS,URINE None Seen /HPF (None Seen); WHITE BLOOD CELL CASTS,URINE None Seen /LPF (None Seen); YEAST,URINE None Seen /HPF (None Seen)
[2023-11-07] MEDS: PANTOPRAZOLE 40 MG INJ VIAL IVP SCH (09:00)
[2023-11-07] MEDS ORDERED: OCTREOTIDE ACETATE 1.25 MG in NACL 0.9% 250 ML IV SCH ×2 (10:50→11:00)
[2023-11-07] MEDS ORDERED: FUROSEMIDE 40 MG/4 ML VIAL IVP SCH (11:15)
[2023-11-07] MEDS: LACTULOSE 20 GM/30 ML UDC PO SCH ×3 (11:59→17:00)
[2023-11-08] VITALS (7 sets, daily range): BP systolic 95–112; BP diastolic 52–68; PULSE 87–113; RESP 18–20; TEMP 97.1–97.6; O2SAT 97–100
[2023-11-08] MEDS: MIDODRINE 5 MG TAB PO SCH ×3 (01:11→13:00)
[2023-11-08] MEDS: PANTOPRAZOLE 40 MG INJ VIAL IVP SCH ×2 (01:12→18:52)
[2023-11-08] MEDS: ALBUMIN HUMAN 25% 100 ML IV SCH ×3 (01:13→18:52)
[2023-11-08] MEDS: NACL 0.9% 1,000 ML IV SCH (03:40)
[2023-11-08 07:08] LABS: ALBUMIN 2.6 g/dL (3.4-5.0); ANION GAP 10.3 (8-16); CALCIUM 8.3 mg/dL (8.5-10.1); CARBON DIOXIDE 31.3 mmol/L (21-32); CREATININE 3.1 mg/dL (0.6-1.3); POTASSIUM 3.6 mmol/L (3.5-5.1); TOTAL PROTEIN, SERUM 5.9 g/dL (6.4-8.2)
[2023-11-08 08:24] LABS: BASOPHILS % (AUTO) 0.3 % (0.0-2.0); HEMOGLOBIN 7.9 g/dL (12.0-18.0); LYMPHOCYTES # (AUTO) 0.3 K/uL (2.0-11.5); LYMPHOCYTES % (AUTO) 9.6 % (20.5-51.1); MEAN CORPUSCULAR HEMOGLOBIN 38 pg (27-31); MEAN CORPUSCULAR HGB CONC 35 g/dL (33-37); MEAN CORPUSCULAR VOLUME 111.4 fL (80-94); MONOCYTES # (AUTO) 0.6 K/uL (0.8-1.0); MONOCYTES % (AUTO) 17.9 % (1.7-9.3); NEUTROPHILS # (AUTO) 2.5 K/uL (1.8-7.7); NEUTROPHILS % (AUTO) 71.2 % (42.2-75.2); PLATELET COUNT (AUTO) 44 K/uL (140-450); RED BLOOD CELL COUNT(AUTO) 2.06 MIL/uL (4.20-6.10); RED CELL DISTRIBUTION WIDTH 17.2 % (11.6-13.7); WHITE BLOOD COUNT (AUTO) 3.5 K/uL (4.8-10.8)
[2023-11-08] MEDS: LACTULOSE 20 GM/30 ML UDC PO SCH ×3 (09:00→17:00)
[2023-11-08] MEDS ORDERED: PHYTONADIONE 10 MG in NACL 0.9% 50 ML IV ONE (11:00)
[2023-11-08 11:08] LABS: INR 2.33 (0.8-1.2); PROTHROMBIN TIME 23.5 secs (10.8-13.4)
[2023-11-09] VITALS (9 sets, daily range): BP systolic 91–127; BP diastolic 47–70; PULSE 91–99; RESP 18–22; TEMP 97.7–98.6; O2SAT 95–100
[2023-11-09] MEDS: MIDODRINE 5 MG TAB PO SCH ×3 (01:59→14:10)
[2023-11-09] MEDS: PANTOPRAZOLE 40 MG INJ VIAL IVP SCH ×2 (02:01→09:13)
[2023-11-09] MEDS: OCTREOTIDE ACETATE 100 MCG/ML VIAL SUBQ SCH ×3 (02:01→14:12)
[2023-11-09] MEDS: ALBUMIN HUMAN 25% 100 ML IV SCH ×3 (02:46→06:00)
[2023-11-09] MEDS: NACL 0.9% 1,000 ML IV SCH (03:40)
[2023-11-09 06:25] LABS: ALBUMIN 3.1 g/dL (3.4-5.0); ANION GAP 10.2 (8-16); CALCIUM 8.6 mg/dL (8.5-10.1); CARBON DIOXIDE 30.5 mmol/L (21-32); CREATININE 3.3 mg/dL (0.6-1.3); POTASSIUM 3.7 mmol/L (3.5-5.1); TOTAL BILIRUBIN 21.4 mg/dL (0.0-1.0); TOTAL PROTEIN, SERUM 6.3 g/dL (6.4-8.2)
[2023-11-09 06:40] LABS: BASOPHILS % (AUTO) 0.2 % (0.0-2.0); EOSINOPHILS # (AUTO) 0.1 K/uL (0-0.4); EOSINOPHILS % (AUTO) 1.6 % (0.0-4.0); HEMATOCRIT 23.3 % (36-52); LYMPHOCYTES # (AUTO) 0.2 K/uL (2.0-11.5); LYMPHOCYTES % (AUTO) 7.5 % (20.5-51.1); MEAN CORPUSCULAR HEMOGLOBIN 38 pg (27-31); MEAN CORPUSCULAR HGB CONC 34 g/dL (33-37); MEAN CORPUSCULAR VOLUME 111.6 fL (80-94); MONOCYTES # (AUTO) 0.5 K/uL (0.8-1.0); MONOCYTES % (AUTO) 16.1 % (1.7-9.3); NEUTROPHILS # (AUTO) 2.5 K/uL (1.8-7.7); NEUTROPHILS % (AUTO) 74.6 % (42.2-75.2); PLATELET COUNT (AUTO) 35 K/uL (140-450); RED BLOOD CELL COUNT(AUTO) 2.09 MIL/uL (4.20-6.10); RED CELL DISTRIBUTION WIDTH 17.1 % (11.6-13.7); WHITE BLOOD COUNT (AUTO) 3.3 K/uL (4.8-10.8)
[2023-11-09] MEDS ORDERED: PHYTONADIONE 10 MG/ML AMP SUBQ SCH (08:30)
[2023-11-09] MEDS: LACTULOSE 20 GM/30 ML UDC PO SCH ×3 (09:12→16:55)
[2023-11-09] MEDS ORDERED: PHYTONADIONE 10 MG in NACL 0.9% 50 ML IV ONE (12:05)
[2023-11-09] MEDS ORDERED: FUROSEMIDE 40 MG/4 ML VIAL IVP SCH ×2 (12:30→13:05)
[2023-11-10] VITALS (8 sets, daily range): BP systolic 85–132; BP diastolic 46–70; PULSE 85–102; RESP 18–22; TEMP 96.6–98.6; O2SAT 97–100
[2023-11-10] MEDS: MIDODRINE 5 MG TAB PO SCH ×4 (01:21→18:36)
[2023-11-10] MEDS: ALBUMIN HUMAN 25% 100 ML IV SCH ×3 (01:24→13:08)
[2023-11-10] MEDS: OCTREOTIDE ACETATE 100 MCG/ML VIAL SUBQ SCH ×4 (01:25→21:01)
[2023-11-10 07:13] LABS: POTASSIUM 3.8 mmol/L (3.5-5.1)
[2023-11-10 07:14] LABS: ANION GAP 11.8 (8-16); CALCIUM 8.6 mg/dL (8.5-10.1); CREATININE 3.4 mg/dL (0.6-1.3)
[2023-11-10 09:12] LABS: BASOPHILS % (AUTO) 0.7 % (0.0-2.0); EOSINOPHILS % (AUTO) 1.2 % (0.0-4.0); HEMATOCRIT 22.7 % (36-52); HEMOGLOBIN 7.8 g/dL (12.0-18.0); LYMPHOCYTES # (AUTO) 0.2 K/uL (2.0-11.5); LYMPHOCYTES % (AUTO) 6.1 % (20.5-51.1); MEAN CORPUSCULAR HEMOGLOBIN 39 pg (27-31); MEAN CORPUSCULAR HGB CONC 35 g/dL (33-37); MEAN CORPUSCULAR VOLUME 112.1 fL (80-94); MONOCYTES # (AUTO) 0.7 K/uL (0.8-1.0); MONOCYTES % (AUTO) 17.8 % (1.7-9.3); NEUTROPHILS # (AUTO) 2.9 K/uL (1.8-7.7); NEUTROPHILS % (AUTO) 74.2 % (42.2-75.2); PLATELET COUNT (AUTO) 38 K/uL (140-450); RED BLOOD CELL COUNT(AUTO) 2.02 MIL/uL (4.20-6.10); RED CELL DISTRIBUTION WIDTH 17.2 % (11.6-13.7); WHITE BLOOD COUNT (AUTO) 3.9 K/uL (4.8-10.8)
[2023-11-10 09:25] LABS: INR 2.4 (0.8-1.2); PROTHROMBIN TIME 24.2 secs (10.8-13.4)
[2023-11-10] MEDS: LACTULOSE 20 GM/30 ML UDC PO SCH ×3 (09:38→18:36)
[2023-11-10] MEDS ORDERED: FUROSEMIDE 40 MG/4 ML VIAL IVP SCH (14:08)
[2023-11-11] VITALS (9 sets, daily range): BP systolic 88–120; BP diastolic 51–70; PULSE 98–118; RESP 18–24; TEMP 97.1–98.8; O2SAT 97–99
[2023-11-11] MEDS: OCTREOTIDE ACETATE 100 MCG/ML VIAL SUBQ SCH ×3 (05:06→20:23)
[2023-11-11] MEDS: MIDODRINE 5 MG TAB PO SCH ×3 (06:36→20:08)
[2023-11-11 07:02] LABS: BASOPHILS % (AUTO) 0.3 % (0.0-2.0); EOSINOPHILS % (AUTO) 0.9 % (0.0-4.0); HEMATOCRIT 25.4 % (36-52); INR 2.36 (0.8-1.2); LYMPHOCYTES # (AUTO) 0.2 K/uL (2.0-11.5); LYMPHOCYTES % (AUTO) 4.6 % (20.5-51.1); MEAN CORPUSCULAR HEMOGLOBIN 39 pg (27-31); MEAN CORPUSCULAR HGB CONC 35 g/dL (33-37); MEAN CORPUSCULAR VOLUME 111.1 fL (80-94); MONOCYTES # (AUTO) 0.9 K/uL (0.8-1.0); MONOCYTES % (AUTO) 19.3 % (1.7-9.3); NEUTROPHILS # (AUTO) 3.5 K/uL (1.8-7.7); NEUTROPHILS % (AUTO) 74.9 % (42.2-75.2); PLATELET COUNT (AUTO) 45 K/uL (140-450); PROTHROMBIN TIME 23.8 secs (10.8-13.4); RED BLOOD CELL COUNT(AUTO) 2.28 MIL/uL (4.20-6.10); RED CELL DISTRIBUTION WIDTH 17.2 % (11.6-13.7); WHITE BLOOD COUNT (AUTO) 4.6 K/uL (4.8-10.8)
[2023-11-11 07:27] LABS: ALBUMIN 2.9 g/dL (3.4-5.0); ANION GAP 14.9 (8-16); CALCIUM 9.1 mg/dL (8.5-10.1); CARBON DIOXIDE 29.1 mmol/L (21-32); CREATININE 3.3 mg/dL (0.6-1.3); TOTAL BILIRUBIN 23.9 mg/dL (0.0-1.0); TOTAL PROTEIN, SERUM 5.8 g/dL (6.4-8.2)
[2023-11-11] MEDS: LACTULOSE 20 GM/30 ML UDC PO SCH ×3 (09:00→17:00)
[2023-11-11] MEDS ORDERED: FUROSEMIDE 40 MG/4 ML VIAL IVP SCH (13:40)
[2023-11-12] VITALS (13 sets, daily range): BP systolic 98–142; BP diastolic 42–72; PULSE 90–106; RESP 18–24; TEMP 97–98.4; O2SAT 95–100
[2023-11-12] MEDS: ALBUTEROL SULFATE/IPRATROPIU 3 ML SOL IH PRN ×3 (02:18→23:14)
[2023-11-12] MEDS: OCTREOTIDE ACETATE 100 MCG/ML VIAL SUBQ SCH ×3 (06:05→20:47)
[2023-11-12] MEDS: MIDODRINE 5 MG TAB PO SCH ×3 (06:06→19:26)
[2023-11-12 06:39] LABS: BASOPHILS % (AUTO) 0.3 % (0.0-2.0); EOSINOPHILS % (AUTO) 0.8 % (0.0-4.0); HEMATOCRIT 21.1 % (36-52); HEMOGLOBIN 7.4 g/dL (12.0-18.0); LYMPHOCYTES # (AUTO) 0.2 K/uL (2.0-11.5); LYMPHOCYTES % (AUTO) 6.8 % (20.5-51.1); MEAN CORPUSCULAR HEMOGLOBIN 39 pg (27-31); MEAN CORPUSCULAR HGB CONC 35 g/dL (33-37); MEAN CORPUSCULAR VOLUME 110.7 fL (80-94); MONOCYTES # (AUTO) 0.5 K/uL (0.8-1.0); MONOCYTES % (AUTO) 20.2 % (1.7-9.3); NEUTROPHILS # (AUTO) 1.9 K/uL (1.8-7.7); NEUTROPHILS % (AUTO) 71.9 % (42.2-75.2); PLATELET COUNT (AUTO) 34 K/uL (140-450); RED CELL DISTRIBUTION WIDTH 16.6 % (11.6-13.7); WHITE BLOOD COUNT (AUTO) 2.7 K/uL (4.8-10.8)
[2023-11-12 06:54] LABS: ALBUMIN 2.5 g/dL (3.4-5.0); ANION GAP 11.9 (8-16); CALCIUM 8.7 mg/dL (8.5-10.1); CREATININE 3.5 mg/dL (0.6-1.3); POTASSIUM 3.9 mmol/L (3.5-5.1); TOTAL BILIRUBIN 20.2 mg/dL (0.0-1.0); TOTAL PROTEIN, SERUM 5.8 g/dL (6.4-8.2)
[2023-11-12] MEDS: LACTULOSE 20 GM/30 ML UDC PO SCH ×3 (08:15→16:23)
[2023-11-12] MEDS: ALBUMIN HUMAN 25% 100 ML IV SCH ×2 (09:22→21:21)
[2023-11-13] VITALS (15 sets, daily range): BP systolic 107–154; BP diastolic 57–93; PULSE 64–123; RESP 18–28; TEMP 97–98.4; O2SAT 92–100
[2023-11-13] MEDS: OCTREOTIDE ACETATE 100 MCG/ML VIAL SUBQ SCH ×3 (05:38→21:14)
[2023-11-13] MEDS: MIDODRINE 5 MG TAB PO SCH ×3 (06:07→19:00)
[2023-11-13 06:43] LABS: BASOPHILS % (AUTO) 0.3 % (0.0-2.0); HEMATOCRIT 22.5 % (36-52); HEMOGLOBIN 7.8 g/dL (12.0-18.0); LYMPHOCYTES # (AUTO) 0.2 K/uL (2.0-11.5); LYMPHOCYTES % (AUTO) 7.1 % (20.5-51.1); MEAN CORPUSCULAR HEMOGLOBIN 39 pg (27-31); MEAN CORPUSCULAR HGB CONC 35 g/dL (33-37); MEAN CORPUSCULAR VOLUME 111.9 fL (80-94); MONOCYTES # (AUTO) 0.6 K/uL (0.8-1.0); MONOCYTES % (AUTO) 17.9 % (1.7-9.3); NEUTROPHILS # (AUTO) 2.5 K/uL (1.8-7.7); NEUTROPHILS % (AUTO) 73.7 % (42.2-75.2); PLATELET COUNT (AUTO) 36 K/uL (140-450); RED BLOOD CELL COUNT(AUTO) 2.01 MIL/uL (4.20-6.10); RED CELL DISTRIBUTION WIDTH 17.1 % (11.6-13.7); WHITE BLOOD COUNT (AUTO) 3.4 K/uL (4.8-10.8)
[2023-11-13 07:09] LABS: ALBUMIN 2.9 g/dL (3.4-5.0); ANION GAP 12.6 (8-16); CARBON DIOXIDE 30.2 mmol/L (21-32); CREATININE 3.6 mg/dL (0.6-1.3); POTASSIUM 3.8 mmol/L (3.5-5.1); TOTAL PROTEIN, SERUM 6.5 g/dL (6.4-8.2)
[2023-11-13 07:28] LABS: INR 2.58 (0.8-1.2); PROTHROMBIN TIME 25.9 secs (10.8-13.4)
[2023-11-13] MEDS: ALBUMIN HUMAN 25% 100 ML IV SCH (08:07)
[2023-11-13] MEDS: LACTULOSE 20 GM/30 ML UDC PO SCH ×3 (08:07→16:17)
[2023-11-13] MEDS: FUROSEMIDE 40 MG/4 ML VIAL IVP SCH ×2 (15:16→15:18)
[2023-11-13] MEDS: ALBUTEROL SULFATE/IPRATROPIU 3 ML SOL IH PRN (19:09)
[2023-11-13] MEDS ORDERED: LORazepam 1 MG TAB PO PRN (20:05)
[2023-11-13] MEDS ORDERED: MORPHINE SULFATE 2 MG/ML SYR IVP PRN (20:05)
[2023-11-13] MEDS ORDERED: ZOLPIDEM 10 MG TAB PO PRN (20:05)
== END 2023-11-13 22:00 | disposition short-term general hospital (02) | DRG 871 ==
LOC: MED 12:20 → MMU 14:08 → MTU 21:48
PROVIDERS: ADMIT Family Medicine; ATTEND Family Medicine
PROC: 30233K1 Transfusion of Nonautologous Frozen Plasma into Peripheral Vein, Percutaneous Approach (ICD-10-PCS; principal; 2023-11-06)
PROC: 30233N1 Transfusion of Nonautologous Red Blood Cells into Peripheral Vein, Percutaneous Approach (ICD-10-PCS; 2023-11-07)
PROC: 30233R1 Transfusion of Nonautologous Platelets into Peripheral Vein, Percutaneous Approach (ICD-10-PCS; 2023-11-08)
DX: A41.9 Sepsis, unspecified organism (principal); K65.2 Spontaneous bacterial peritonitis; N17.0 Acute kidney failure with tubular necrosis; K76.7 Hepatorenal syndrome; R65.21 Severe sepsis with septic shock; R18.8 Other ascites; E46 Unspecified protein-calorie malnutrition; K76.6 Portal hypertension; K92.2 Gastrointestinal hemorrhage, unspecified; E87.1 Hypo-osmolality and hyponatremia; N39.0 Urinary tract infection, site not specified; D50.9 Iron deficiency anemia, unspecified; Z68.29 Body mass index [BMI] 29.0-29.9, adult; D63.8 Anemia in other chronic diseases classified elsewhere; D69.59 Other secondary thrombocytopenia; K74.60 Unspecified cirrhosis of liver; Z85.038 Personal history of other malignant neoplasm of large intestine
CPT/HCPCS: 36415; 71045; 76705; 80048; 80053; 80076; 81001; 82105; 82140; 82272; 82607; 82746; 83605; 83880; 84300; 84484; 85025; 85610; 85730; 86886; 86900; 86901; 86920; 87040; 87081; 87086; 93005; 94640; 96365; 96366; 96367; 99285; C9113; J0696; J1940; J2354; J3430; J7030; J7060; P9016; P9017; P9035; P9046; Q0092